=== PATIENT | female | born 1945 | race Caucasian/White ===

== ENCOUNTER → 2020-12-27 15:53 | Outpatient (BNVA) | payer MEDICARE, SELFPAY | PROVIDERS: PCP Internal Medicine; Visit Provider Internal Medicine | DX: E04.1 Nontoxic single thyroid nodule (principal); L65.9 Nonscarring hair loss, unspecified; E55.9 Vitamin D deficiency, unspecified; Z91.040 Latex allergy status; T78.49XA Other allergy, initial encounter | CPT/HCPCS: 99212 ==

== ENCOUNTER 2021-01-03 15:02 | Outpatient (REF) | payer MEDICARE, SELFPAY ==
--- NOTE | ~2021-01-03 | US_ITS ---
EXAMINATION: US SOFT TISSUE NECK CLINICAL INFORMATION: Lymph node mapping. Nontoxic multinodular goiter COMPARISON: June 30, 2019, May 05, 2019, and studies dating back to September 11, 2016 TECHNIQUE: Ultrasound of the neck soft tissues is performed with high- frequency crews-scale imaging and color Doppler. FINDINGS: RIGHT NECK SOFT TISSUES: Scattered architecturally normal nodes are present. The nodes show normal fatty hilus, normal cortical thickness, and no cystic change or calcification. No abnormal color flow. The largest nodes are as follows: Level 2: 1.0 cm. Normal benny architecture. Cortical thickness is up to 1.5 mm in diameter. No cortical lobulation is seen. Level 1B: 0.9 cm. Normal benny architecture. Cortical width measures up to 1.5 mm in diameter without lobulation. LEFT NECK SOFT TISSUES: No abnormal-appearing lymph nodes identified. US/US soft tiss head and/or neck IMPRESSION: 1. Normal right neck lymph nodes with no left neck lymph nodes identified.
--- NOTE | ~2021-01-03 | US_ITS ---
EXAMINATION: US THYROID CLINICAL INFORMATION: Nontoxic multinodular goiter. COMPARISON: Ultrasound soft tissue head/neck thyroid dated 05/05/2019 and 08/16/2018. TECHNIQUE: Linear transducer grayscale and color Doppler examination with attention to the region of the thyroid. FINDINGS: SIZE: Measurements of the thyroid lobes and nodules are given in sagittal, anteroposterior and transverse dimensions respectively. Right Thyroid Lobe: 4.9 x 1.6 x 1.1 cm, volume 4.7 mL. Previously 4.9 x 1.5 x 1.7 cm, volume 6.6 mL. Parenchyma: The gland echotexture is heterogeneous. Thyroid vascularity is increased. Left Thyroid Lobe: 5.1 x 2.6 x 2.9 cm, volume 20.6 mL. Previously 5.7 x 2.5 x 2.9 cm, volume 21.8 mL. Parenchyma: The gland echotexture is heterogeneous. Thyroid vascularity is increased. Isthmus: 0.20 cm in maximum AP dimension. Previously 0.20 cm. Estimated total number of nodules greater than or equal to 1 cm: 2. Liquor Merchant nodules are described as follows: 1. Location: Right superior. Size: 0.80 x 0.30 x 0.60 cm, volume 0.08 mL. Previously: 0.50 x 0.30 x 0.40 cm, volume 0.03 mL. Nodule characteristics: Composition: Mixed cystic and solid (1). Echogenicity: Hyperechoic (1). Shape: Not taller than wide (0). Margins: Smooth (0). Echogenic Foci: None (0). ACR TI-RADS total points: 2 Previous: n/a ACR TI-RADS category: 2 Previous: n/a Significant change in size (>/= 20% in 2 dimensions and minimal increase of 2 mm or 50% or greater increase in volume): Minimal. Change in features: None. Change in ACR TI-RADS risk category: n/a 2. Location: Right superior. Size: 0.80 x 0.30 x 0.70 cm, volume 0.09 mL. Previously: 0.70 x 0.40 x 0.80 cm, volume 0.12 mL. Nodule characteristics: Composition: Solid (2). Echogenicity: Isoechoic (1). Shape: Not taller than wide (0). Margins: Smooth (0). Echogenic Foci: Peripheral calcifications (2). ACR TI-RADS total points: 5 Previous: n/a ACR TI-RADS category: 4 Previous: n/a Significant change in size (>/= 20% in 2 dimensions and minimal increase of 2 mm or 50% or greater increase in volume): None. Change in features: None. Change in ACR TI-RADS risk category: n/a 3. Location: Right inferior. Size: 1.5 x 0.70 x 0.80 cm, volume 0.44 mL. Previously: 0.54 x 0.45 x 0.50 cm, volume 0.06 mL. Nodule characteristics: Composition: Solid (2). Echogenicity: Hypoechoic (2). Shape: Not taller than wide (0). Margins: Smooth (0). Echogenic Foci: Punctate echogenic foci (3). ACR TI-RADS total points: 7 Previous: n/a ACR TI-RADS category: 5 Previous: n/a Significant change in size (>/= 20% in 2 dimensions and minimal increase of 2 mm or 50% or greater increase in volume): Significant increase. Change in features: Slightly heterogeneous. Change in ACR TI-RADS risk category: n/a 4. Location: Left mid. Size: 4.3 x 2.4 x 2.8 cm, volume 15.0 mL. Previously: 4.2 x 2.2 x 3.0 cm, volume 14.5 mL. Nodule characteristics: Composition: Solid/almost completely solid (2). Echogenicity: Isoechoic (1). Shape: Not taller than wide (0). Margins: Smooth (0). Echogenic Foci: Punctate echogenic foci (3). ACR TI-RADS total points: 6 Previous: n/a ACR TI-RADS category: 4 Previous: n/a Significant change in size (>/= 20% in 2 dimensions and minimal increase of 2 mm or 50% or greater increase in volume): None Change in features: None Change in ACR TI-RADS risk category: n/a NODES: No lymphadenopathy is seen in the tissue surrounding the thyroid gland. US/US thyroid IMPRESSION: Multiple bilateral nodules. There is increase in size of the right lower pole nodule by greater than 50%. Recommend fine needle biopsy aspiration. ACR TI-RADS RECOMMENDATION REFERENCE: Ultrasound-guided fine-needle aspiration, followup ultrasound, no further follow up. * TR1 (0 point) and TR 2 (2 points): No FNA or follow up * TR3 (3 points): FNA if more than or equal to 2.5 cm in maximum dimension, followup ultrasound in 1, 3 and 5 years if 1.5 to 2.4 cm in maximum dimension. * TR4 (4-6 points): FNA if more than or equal to 1.5 cm in maximum dimension, followup ultrasound in 1, 2, 3 and 5 years if 1 to 1.4 cm in maximum dimension. * TR5 (more than or equal to 7 points): FNA if more than or equal to 1 cm in maximum dimension, followup ultrasound every year for 5 years if 0.5 to 0.9 cm in maximum dimension. * TR3, TR4 or TR5 nodules that are below the size threshold for follow up receive no follow up.
== END 2021-01-03 15:03 | disposition home or self-care (01) ==
LOC: HO.HMGCX 15:02
PROVIDERS: PCP Internal Medicine; Visit Provider Internal Medicine
DX: E04.2 Nontoxic multinodular goiter (principal)
CPT/HCPCS: 76536

== ENCOUNTER 2021-03-12 07:26 | Outpatient (REF) | payer MEDICARE, SELFPAY ==
[2021-03-12 08:29] LABS: Alanine Aminotransferase 12 U/L (0-31); Albumin Level 4.6 g/dL (3.5-5.0); Alkaline Phosphatase 71 U/L (39-117); Anion Gap 10 (12-20); Aspartate Amino Transferase 15 U/L (5-31); Bilirubin Total 0.4 mg/dL (0.0-1.0); Blood Urea Nitrogen 8 mg/dL (9-16); Calcium 9.5 mg/dL (8.4-10.2); Carbon Dioxide 25 mmol/L (22-29); Chloride 110 mmol/L (96-108); Estimated Glomerular Filt Rate > 60; Glucose Random 111 mg/dL (60-115); Phosphorus 3.7 mg/dL (2.7-4.5); Potassium 4.2 mmol/L (3.3-5.1); Sodium 141 mmol/L (135-145); Total Protein 6.6 g/dL (6.5-8.0)
[2021-03-12 08:40] LABS: Free T4 (Free Thyroxine) 0.95 ng/dL (0.71-1.85); Thyroid Stimulating Hormone 2.95 uIU/mL (0.32-4.0); Vitamin D 25-OH Total 51.6 ng/mL (>30)
[2021-03-13 15:51] LABS: Calcium (PTHI) 9.4 mg/dL (8.6-10.4); PTHI 35 pg/mL (14-64)
[2021-03-14 06:07] LABS: DHEA Sulfate 68 mcg/dL (7-177)
[2021-03-16 12:45] LABS: Testosterone, Free 5.4 pg/mL (0.2-3.7); Testosterone, Total 76 ng/dL (2-45)
[2021-03-20 16:56] LABS: Androstenedione 102 ng/dL
[2021-03-25 16:46] LABS: Adrenocorticotropic Hormone 56 pg/mL (6-50)
== END 2021-03-12 07:27 | disposition home or self-care (01) ==
LOC: HO.LAB 07:26
PROVIDERS: PCP Internal Medicine; Visit Provider Internal Medicine
DX: E55.9 Vitamin D deficiency, unspecified (principal); E04.2 Nontoxic multinodular goiter; L65.9 Nonscarring hair loss, unspecified
CPT/HCPCS: 36415; 80053; 82024; 82157; 82306; 82627; 83498; 83970; 84100; 84402; 84403; 84439; 84443

== ENCOUNTER 2021-03-28 07:39 | Outpatient (REF) | payer MEDICARE, SELFPAY ==
--- NOTE | 2021-03-28 08:45 | PM.OP ---
Brief Operative Note Date of Service: 03/28/21 Pre-op diagnosis: Multinodular Thyroid Surgeon: Jane King, DO This is doctor Jane King. This is an ultrasound-guided fine-needle aspiration report. Date of Examination: 03/28/2021 Indication: Multinodular Thyroid Porcedure: Procedure was explained to the patient. Alternatives, the risk and benefits were discussed. Written consent was obtained. A time-out was also obtained. After sterile preparation, fine-needle aspiration of a right lower pole 1.5 cm thyroid nodule was performed using direct ultrasound guidance to confirm accurate needle placement. Six aspirations were made using 27 gauge needles. Samples were submitted for cytology. One pass was dedicated for [employer] dental laboratory technology teacher testing. Our attention was then turned to the left mid pole. Fine-needle aspiration of a left mid pole 4.5 cm thyroid nodule was performed. Three aspirations were made using 27 gauge needles. Samples were submitted for cytology. One pass was dedicated for [employer] sequencing dental laboratory technology teacher testing. The patient tolerated the procedure well. Aftercare instructions were provided. Impression: Uncomplicated fine needle aspiration biopsy of of a right lower pole 1.5 cm, and a left mid pole 4.5 cm thyroid nodule. Was an Shroud Line Tier used for this Procedure?: No Estimated blood loss (mL): 0
[2021-03-28] MEDS: Lidocaine HCl 1 % MPF 5 ML VIAL SUBCUT (08:48)
== END 2021-03-28 07:40 | disposition home or self-care (01) ==
LOC: HO.US 07:39
PROVIDERS: PCP Internal Medicine; Visit Provider Internal Medicine
DX: E04.2 Nontoxic multinodular goiter (principal)
CPT/HCPCS: 10005; 10006; 88172; 88173; 88177

== ENCOUNTER → 2021-04-11 11:21 | Outpatient (BNVA) | payer MEDICARE, SELFPAY | PROVIDERS: PCP Internal Medicine; Visit Provider Internal Medicine | DX: E04.2 Nontoxic multinodular goiter (principal); E55.9 Vitamin D deficiency, unspecified; E28.8 Other ovarian dysfunction | CPT/HCPCS: Q3014 ==

== ENCOUNTER 2021-04-30 13:52 | Outpatient (REF) | payer MEDICARE, SELFPAY ==
--- NOTE | ~2021-04-30 | CT_ITS ---
EXAMINATION: CT ABDOMEN WITHOUT AND WITH CONTRAST CLINICAL INFORMATION: Ovarian dysfunction. COMPARISON: None TECHNIQUE: Contiguous axial thin section helical images of the abdomen were performed before and after the administration of oral contrast and 85 mL of Omnipaque 350 intravenous contrast. The data set was reformatted in the coronal and sagittal planes and reviewed on an independent workstation. This CT examination was performed using dose optimization techniques as appropriate, variously including the following: *Automated exposure control *Adjustment of mA and/or kV according to patient size (this includes techniques or standardized protocols for targeted exams where dose is matched to indication/reason for exam; i.e. extremities or head) *Use of iterative reconstruction technique DLP: 203 mGy-cm FINDINGS: LUNG BASES: The lung bases are clear. LIVER, GALLBLADDER, AND BILIARY TREE: There are innumerable low-attenuation liver lesions suggestive of a small cyst. The liver is otherwise unremarkable. The gallbladder is unremarkable. There is no biliary duct dilatation. PANCREAS: Unremarkable. SPLEEN: Unremarkable. ADRENAL GLANDS AND KIDNEYS: The adrenal glands are normal. No focal lesion is seen. There is a small 1 cm cyst in the lower pole of the left kidney. No imaging follow-up is indicated. The kidneys are otherwise unremarkable. BOWEL LOOPS: Unremarkable. The visualized distal thoracic esophagus appears slightly dilated and filled with air. LYMPH NODES: Normal. VASCULAR: There are prominent bilateral ovarian veins. There is evidence of atherosclerotic disease. No aneurysm is seen. Vascular structures are otherwise unremarkable. BONES: There are degenerative changes of the spine and scoliosis. There are small sclerotic lesions seen in the L2 vertebral body and visualized right iliac bone. CT/CT abdomen wo/w con IMPRESSION: Normal-appearing adrenal glands. Multiple liver cysts. Left renal cyst. Fleischner guidelines were followed.
[2021-04-30 14:29] LABS: Blood Urea Nitrogen 7 mg/dL (9-16); Estimated Glomerular Filt Rate > 60
[2021-04-30 14:50] LABS: Thyroid Stimulating Hormone 2.42 uIU/mL (0.32-4.0)
[2021-04-30 15:05] LABS: Free T4 (Free Thyroxine) 0.91 ng/dL (0.71-1.85); Vitamin D 25-OH Total 48.3 ng/mL (>30)
[2021-04-30 16:21] LABS: Cortisol Random 27.2 ug/dL
[2021-05-01 18:31] LABS: Sex Hormone Binding Globulin 72 nmol/L (14-73)
[2021-05-05 16:56] LABS: Testosterone, Free 5.1 pg/mL (0.2-3.7); Testosterone, Total 68 ng/dL (2-45)
== END 2021-04-30 13:53 | disposition home or self-care (01) ==
LOC: HO.CT 13:52
PROVIDERS: Nurse Practitioner Gerontology; Visit Provider Internal Medicine
DX: E28.2 Polycystic ovarian syndrome (principal); E04.2 Nontoxic multinodular goiter; E55.9 Vitamin D deficiency, unspecified; E28.8 Other ovarian dysfunction
CPT/HCPCS: 36415; 74170; 82306; 82533; 82565; 84270; 84402; 84403; 84439; 84443; 84520

== ENCOUNTER 2021-05-09 14:15 | Outpatient (REF) | payer MEDICARE, SELFPAY ==
--- NOTE | ~2021-05-09 | US_ITS ---
EXAMINATION: US PELVIS CLINICAL INFORMATION: Ovarian dysfunction; postmenopausal patient. COMPARISON: None TECHNIQUE: Ultrasound of the pelvis is performed using both transabdominal and transvaginal transducers along with Doppler. Transvaginal imaging is performed due to inadequate visualization transabdominally. FINDINGS: Uterus: The uterus is anteverted and measures 6.6 x 3.6 x 4.9 cm. The double wall endometrial thickness is 0.4 to 0.5 mm. The uterus is smooth in contour and has normal myometrial echogenicity. No visible fibroid. FIBROIDS: There are 4 fibroids seen. 1. Location: Anterior lower uterine segment, myometrial. Size: 1.6 x 1.0 x 1.3 cm. Fibroid characteristics: Heterogeneously hypoechoic. 2. Location: Posterior mid body, myometrial. Size: 1.7 x 1.4 x 1.7 cm. Fibroid characteristics: Heterogeneous echotexture. 3. Location: Anterior mid body, myometrial. Size: 1.5 x 0.6 x 1.1 cm. Fibroid characteristics: Heterogeneous hypoechoic. 4. Location: Rightward fundus. Size: 2.4 x 2.7 x 2.3 cm. Fibroid characteristics: Coarsely calcified, with shadowing. Adnexa: Both ovaries are visualized. There is normal color flow to the adnexa. There is no ovarian torsion. There is a small amount nonspecific free fluid in the cul-de-sac. Right ovary measures 2.2 x 1.4 x 0.9 cm (volume 1.5 mL). Left ovary measures 2.0 x 1.4 x 1.4 cm (volume 1.6 mL). US/US pelvic and transvaginal IMPRESSION: Multiple uterine fibroids are noted, as above.
== END 2021-05-09 14:16 | disposition home or self-care (01) ==
LOC: HO.US 14:15
PROVIDERS: PCP Internal Medicine; Visit Provider Internal Medicine
DX: E28.8 Other ovarian dysfunction (principal); N95.9 Unspecified menopausal and perimenopausal disorder
CPT/HCPCS: 76830; 76856

== ENCOUNTER → 2021-06-05 10:25 | Outpatient (BNVA) | payer MEDICARE, SELFPAY | PROVIDERS: PCP Internal Medicine; Visit Provider Internal Medicine | DX: E04.2 Nontoxic multinodular goiter (principal); E55.9 Vitamin D deficiency, unspecified; E28.8 Other ovarian dysfunction | CPT/HCPCS: Q3014 ==

== ENCOUNTER 2021-08-20 14:11 | Outpatient (REF) | payer MEDICARE, SELFPAY | END 2021-08-20 14:12 | disposition home or self-care (01) | LOC: HO.LAB 14:11 | PROVIDERS: PCP Internal Medicine | DX: N39.0 Urinary tract infection, site not specified (principal); N28.1 Cyst of kidney, acquired | CPT/HCPCS: 87086; 99202 ==

== ENCOUNTER 2022-01-18 14:08 | Outpatient (REF) | payer MEDICARE, SELFPAY ==
[2022-01-26 19:51] LABS: Saliva Cortisol <0.03 mcg/dL
== END 2022-01-18 14:09 | disposition home or self-care (01) ==
LOC: HO.LNP 14:08
PROVIDERS: Visit Provider Internal Medicine
DX: E28.8 Other ovarian dysfunction (principal)
CPT/HCPCS: 82530

== ENCOUNTER → 2022-01-20 13:43 | Outpatient (BNVA) | payer MEDICARE, SELFPAY | PROVIDERS: PCP Internal Medicine; Visit Provider Internal Medicine | DX: E04.2 Nontoxic multinodular goiter (principal); E55.9 Vitamin D deficiency, unspecified; E28.8 Other ovarian dysfunction; E28.1 Androgen excess; Z79.899 Other long term (current) drug therapy | CPT/HCPCS: 99212 ==

== ENCOUNTER 2022-03-03 14:11 | Outpatient (REF) | payer MEDICARE, SELFPAY ==
--- NOTE | ~2022-03-03 | US_ITS ---
EXAMINATION: US THYROID CLINICAL INFORMATION: Nontoxic multinodular goiter. COMPARISON: Ultrasound thyroid 01/03/2021 and 05/05/2019. US-guided thyroid biopsy 03/28/2021. TECHNIQUE: Linear transducer grayscale and color Doppler examination with attention to the region of the thyroid. FINDINGS: SIZE: Measurements of the thyroid lobes and nodules are given in sagittal, anteroposterior and transverse dimensions respectively. Right Thyroid Lobe: 4.9 x 1.6 x 1.4 cm, volume 4.7 mL. Previously 5.0 x 1.2 x 1.4 cm, volume 4.4 mL. Parenchyma: The gland echotexture is heterogeneous. Thyroid vascularity is increased. Left Thyroid Lobe: 5.1 x 2.6 x 2.9 cm, volume 20.6 mL. Previously 5.3 x 2.3 x 3.1 cm, volume 19.8 mL. Parenchyma: The gland echotexture is heterogeneous. Thyroid vascularity is increased. Isthmus: 0.1 cm in maximum AP dimension. Previously 0.2 cm. Estimated total number of nodules greater than or equal to 1 cm: 4. Chemical Machine Tender nodules are described as follows: 1. Location: Left superior. Size: 1.0 x 0.9 x 0.9 cm, volume 0.41 mL. Previously: New since the previous study. Nodule characteristics: Composition: Solid/almost completely solid (2). Echogenicity: Isoechoic (1). Shape: Not taller than wide (0). Margins: Smooth (0). Echogenic Foci: Punctate echogenic foci (3). ACR TI-RADS total points: 6 ACR TI-RADS category: 4 2. Location: Left mid. Size: 4.5 x 2.2 x 2.9 cm, volume 14.8 mL. Previously: 4.3 x 2.4 x 2.8 cm, volume 15.0 mL. Nodule characteristics: Composition: Solid/almost completely solid (2). Echogenicity: Isoechoic (1). Shape: Not taller than wide (0). Margins: Smooth (0). Echogenic Foci: Punctate echogenic foci (3). ACR TI-RADS total points: 6 Previous: 6 ACR TI-RADS category: 4 Previous: 4 Significant change in size (>/= 20% in 2 dimensions and minimal increase of 2 mm or 50% or greater increase in volume): Change in features: Change in ACR TI-RADS risk category: 3. Location: Right mid. Size: 1.0 x 0.5 x 0.8 cm, volume 0.22 mL. Previously: 0.8 x 0.3 x 0.7 cm, volume 0.03 mL. Nodule characteristics: Composition: Solid (2). Echogenicity: Hypoechoic (2). Shape: Not taller than wide (0). Margins: Irregular (2). Echogenic Foci: Peripheral calcifications (2). ACR TI-RADS total points: 8 Previous: 5 ACR TI-RADS category: 5 Previous: 4 Significant change in size (>/= 20% in 2 dimensions and minimal increase of 2 mm or 50% or greater increase in volume): Change in features: Change in ACR TI-RADS risk category: 4. Location: Right inferior. Size: 1.3 x 0.9 x 0.9 cm, volume 0.55 mL. Previously: 1.5 x 0.7 x 0.8 cm, volume 0.44 mL. Nodule characteristics: Composition: Solid (2). Echogenicity: Hypoechoic (2). Shape: Not taller than wide (0). Margins: Smooth (0). Echogenic Foci: Punctate echogenic foci (3). ACR TI-RADS total points: 7 Previous: 7 ACR TI-RADS category: 5 Previous: 5 Significant change in size (>/= 20% in 2 dimensions and minimal increase of 2 mm or 50% or greater increase in volume): Change in features: Change in ACR TI-RADS risk category: NODES: No lymphadenopathy is seen in the tissue surrounding the thyroid gland. US/US thyroid IMPRESSION: Heterogeneous hypervascular thyroid gland with bilateral nodules. The left lobe is slightly enlarged. There is a newly appreciated nodule in the upper pole of the left lobe. This has punctate calcifications and according to TI RADS criteria, fine-needle aspiration should be considered. Nodules otherwise do not appear appreciably changed. ACR TI-RADS RECOMMENDATION REFERENCE: Ultrasound-guided fine-needle aspiration, followup ultrasound, no further follow up. * TR1 (0 point) and TR 2 (2 points): No FNA or follow up. * TR3 (3 points): FNA if more than or equal to 2.5 cm in maximum dimension, followup ultrasound in 1, 3 and 5 years if 1.5 to 2.4 cm in maximum dimension. * TR4 (4-6 points): FNA if more than or equal to 1.5 cm in maximum dimension, followup ultrasound in 1, 2, 3 and 5 years if 1 to 1.4 cm in maximum dimension. * TR5 (more than or equal to 7 points): FNA if more than or equal to 1 cm in maximum dimension, followup ultrasound every year for 5 years if 0.5 to 0.9 cm in maximum dimension. * TR3, TR4 or TR5 nodules that are below the size threshold for followup receive no follow up.
== END 2022-03-03 14:12 | disposition home or self-care (01) ==
LOC: HO.HMGCX 14:11
PROVIDERS: PCP Internal Medicine; Visit Provider Internal Medicine
DX: E04.2 Nontoxic multinodular goiter (principal)
CPT/HCPCS: 76536

== ENCOUNTER 2022-08-25 13:40 | Outpatient (REF) | payer MEDICARE, SELFPAY ==
--- NOTE | ~2022-08-25 | US_ITS ---
EXAMINATION: US RETROPERITONEAL LIMITED (RENAL ONLY) CLINICAL INFORMATION: Cyst of kidney, acquired. COMPARISON: CT abdomen 04/30/2021. TECHNIQUE: Real-time imaging of the kidneys. FINDINGS: RIGHT KIDNEY: 9.3 x 3.4 x 4.5 cm (SAG x AP x TRV). The kidney is normal in size, contour, and echogenicity. Renal cortical thickness is normal. No calculi or focal parenchymal lesions. No hydronephrosis. LEFT KIDNEY: 11.1 x 3.9 x 5.5 cm (SAG x AP x TRV). The kidney is normal in size, contour, and echogenicity. Renal cortical thickness is normal. No hydronephrosis. A lower pole benign 0.9 cm cyst is present which needs no additional imaging or follow-up. No solid renal masses. There is a 2 mm hyperechoic focus present consistent with a nonobstructing calculus. US/US renal BI IMPRESSION: 1. Probable 2 mm nonobstructing left renal calculus. 2. Benign Bosniak class I subcentimeter left renal cyst. As mentioned at the time of the prior CT scan as well, no further imaging or follow-up is indicated.
== END 2022-08-25 13:41 | disposition home or self-care (01) ==
LOC: HO.HMGCX 13:40
PROVIDERS: PCP Internal Medicine; Visit Provider Nurse Practitioner Family
DX: N28.1 Cyst of kidney, acquired (principal)
CPT/HCPCS: 76775

== ENCOUNTER → 2022-09-29 14:23 | Outpatient (BNVA) | payer MEDICARE, SELFPAY | PROVIDERS: PCP Internal Medicine; Visit Provider Nurse Practitioner Family | DX: N28.1 Cyst of kidney, acquired (principal); N20.0 Calculus of kidney; R35.1 Nocturia; R35.0 Frequency of micturition | CPT/HCPCS: 99212 ==

== ENCOUNTER 2023-04-24 00:17 | Emergency (ER) | payer MEDICARE, SELFPAY ==
--- NOTE | ~2023-04-24 | XR_ITS ---
EXAMINATION: XR CHEST CLINICAL INFORMATION: Cough, dyspnea COMPARISON: None available. TECHNIQUE: 2 views of the chest were obtained. FINDINGS: The lungs are hyperinflated, suggesting underlying COPD. No focal consolidation is seen. No evidence of pneumothorax, pleural effusion, or pulmonary edema. Cardiac size is within normal limits. Calcification is present at the aortic arch. No acute osseous findings are seen. XR/XR chest 2V IMPRESSION: No acute cardiopulmonary findings. Hyperinflated lungs suggesting COPD.
[2023-04-24 00:25] VITALS: BP 146/53; PULSE 117; RESP 20; TEMP 37; O2SAT 94; BMI 17.5
[2023-04-24 01:11] VITALS: BP 137/67; PULSE 113; RESP 18; TEMP 37.2; O2SAT 98
--- NOTE | 2023-04-24 01:13 | PC.NURSE ---
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 pt has no complaints of pain at this time. pt verbalizing upper respiratory sx x3 days. pt swabbed in triage - awaiting results at this time. no sob/wob noted at this time. lung sounds clear throughout. respirations even and unlabored. bedside for support. call cazares placed within reach.
[2023-04-24 01:19] LABS: Influenza A PCR NEGATIVE (Negative); Influenza B PCR NEGATIVE (Negative); Resp Syncy Virus RNA Qual PCR NEGATIVE (Negative); SARS COV2 PCR INHOUSE NEGATIVE (Negative)
--- NOTE | 2023-04-24 01:35 | ED_ITS ---
HPI - URI/Sore Throat General Chief Complaint: Upper Respiratory Symptoms Stated Complaint: SoB Time Seen by Provider: 04/24/23 01:12 Source: patient Mode of arrival: ambulatory Limitations: no limitations History of Present Illness HPI Narrative: Patient been coughing with running nose and sore throat for last 3 -4 days patient grand kid was sick with similar symptoms no fever no chills no shortness of breath Related Data Home Medications Medication Instructions Recorded Confirmed biotin 5,000 mcg sublingual tablet 5,000 mcg sublingual DAILY 12/27/20 01/20/22 digoxin 125 mcg (0.125 mg) tablet 125 mcg PO DAILY 12/27/20 01/20/22 melatonin 3 mg tablet (Melatin) 3 mg PO BEDTIME PRN 12/27/20 01/20/22 tretinoin 0.1 % topical cream 1 appl topical BEDTIME 12/27/20 01/20/22 Lactobacillus acidophilus 1 1,000 mmu cells PO DAILY PRN 01/20/22 01/20/22 billion cell tablet lhfmobiq-nnwwoekl-fant 8 mg-folic 1 tab PO DAILY 01/20/22 01/20/22 ac 400 mcg-vit K 10 mcg chew tablet (Centrum Chewables) atorvastatin 20 mg tablet 0 mg PO 09/29/22 estradiol 0.01% (0.1 mg/gram) g vaginal 09/29/22 vaginal cream tretinoin 0.025 % topical cream appl topical BEDTIME 09/29/22 Previous Rx's Medication Instructions Recorded pyridoxine (vitamin B6) 100 mg 100 mg PO DAILY 90 days #90 tabs 09/29/22 tablet vibegron 75 mg tablet (Gemtesa) 75 mg PO DAILY 30 days #30 tabs 09/29/22 benzonatate 200 mg capsule 200 mg PO TID PRN cough #30 caps 04/24/23 cefuroxime axetil 500 mg tablet 500 mg PO BID 7 days #14 tabs 04/24/23 prednisone 20 mg tablet 40 mg (2 x 20 mg) PO DAILY #10 tabs 04/24/23 Allergies Allergy/AdvReac Type Severity Reaction Status Date / Time perfume Allergy Mild RASH Verified 09/29/22 15:37 Latex Gloves Allergy Unknown Unknown Uncoded 09/29/22 15:37 SOIL Allergy Unknown RASH Uncoded 09/29/22 15:37 Review of Systems Review of Systems: Yes all other systems are reviewed and are negative [facility] Past Medical History Medical History Hair loss Hyperandrogenism Interstitial cystitis Liver mass Multinodular thyroid Renal cyst Uterine fibroid UTI (urinary tract infection) Vitamin D deficiency Surgical History Hx of appendectomy Hx of lumpectomy Family History Family History Father Myelodysplasia (myelodysplastic syndrome) Mother Goiter Abdominal aortic aneurysm Maternal Grandmother Goiter Paternal Grandmother Diabetes Social History Household Members: Spouse Alcohol intake: current Alcohol intake frequency: holidays/special occasions only Alcohol type: wine Patient Tobacco Use Status: Never used Tobacco Smoked in Last 30 Days: No Use of substances other than those prescribed or required for medical reasons: No Advance Directives: No Advance Directives Information Provided: No Physical Exam Vital Signs: Vital Signs: Last Vital Signs Temp 98.9 F 04/24/23 01:11 Pulse 106 H 04/24/23 01:53 Resp 18 04/24/23 01:53 BP 137/67 04/24/23 01:11 Pulse Ox 98 04/24/23 01:11 O2 Del Method Room Air 04/24/23 01:11 BMI result Body Mass Index 17.5 Appearance: Alert. Oriented X3. No acute distress. ENT: Pharynx normal. Oral Mucosa moist Neck: Normal inspection. Neck supple. CVS: Normal heart rate and rhythm. Pulses normal. Respiratory: No respiratory distress. Bilateral wheezing cough Equal air entry bilateral, Abdomen: Soft and nontender. Bowel sounds are present, Skin: Skin warm and dry. Normal skin color. Normal skin turgor. Extremities: No lower extremity edema. No calf tendernessNo sensory deficit.No cerebellar signs , cranial nerves II-XII intact Medications Administered Discontinued Medications Generic Name Dose Route Start Last Admin Trade Name Freq PRN Reason Stop Dose Admin Cefuroxime Axetil 500 mg 04/24/23 01:38 04/24/23 01:44 Cefuroxime Axetil 500 Mg Tablet PO 04/24/23 01:39 500 mg ONCE ONE Administration Albuterol Sulfate 2.5 mg/ 0 mg 04/24/23 01:35 04/24/23 01:52 Albuterol/Ipratropium 3 ml INHALE 04/24/23 01:36 5 dose ONCE ONE Administration Dexamethasone 10 mg 04/24/23 01:35 04/24/23 01:41 Dexamethasone 2 Mg Tablet PO 04/24/23 01:36 10 mg ONCE ONE Administration Guaifenesin/Codeine Phosphate 10 ml 04/24/23 01:36 04/24/23 01:41 Guaifen/Codeine Sf 200/20/10ml 10 Ml Liquid PO 04/24/23 01:37 10 ml ONCE ONE Administration Medical Decision Making Medical Decision Making [facility] Narrative: Patient has bronchitis COVID flu strep negative discharge patient home on antibiotics and steroids and inhaler Differential Diagnosis Differential Diagnoses: The differential diagnosis associated with the presentation includes As above Lab Data [facility] Lab Attestation statement: I reviewed the patient's lab results. Labs: Lab Results 04/24/23 04/24/23 Range/Units 00:33 02:31 Urine Color Yellow Urine Appearance Clear Urine pH 5.0 (5.0-9.0) Ur Specific [place] 1.020 (1.005-1.025) Urine Protein Negative (Neg-Trace) mg/dL Urine Glucose (UA) Negative (Negative) mg/dL Urine Ketones Trace (Negative) mg/dL Urine Blood Negative (Negative) Urine Nitrite Negative (Negative) Ur Leukocyte Esterase Moderate (2+) H (Negative) Urine RBC 0-2 (0-2) /HPF Urine WBC 21-50 H (0-5) /HPF Ur Squamous Epith Cells 0-2 (0-2) /HPF Urine Bacteria None Seen (None Seen) Hyaline Casts 0-2 (0-2) /LPF Influenza Type A (PCR) NEGATIVE (Negative) Influenza Type B (PCR) NEGATIVE (Negative) RSV RNA Qual (PCR) NEGATIVE (Negative) SARS-CoV-2 RNA (RT-PCR) NEGATIVE (Negative) S. pyogenes GrpA LAUREN Negative (Negative) Discharge Plan Discharge Clinical Impression: Acute bronchitis Patient Disposition: Home, Self-Care Instructions: Acute Bronchitis (ED) Additional Instructions: Take antibiotics, prednisone and use inhaler as prescribed Follow with PCP if not better Prescriptions: New benzonatate 200 mg capsule 200 mg PO TID PRN (Reason: cough) Qty: 30 0RF prednisone 20 mg tablet 40 mg PO DAILY Qty: 10 0RF cefuroxime axetil 500 mg tablet 500 mg PO BID 7 Days Qty: 14 0RF No Action digoxin 125 mcg (0.125 mg) tablet 125 mcg PO DAILY biotin 5,000 mcg tablet, sublingual 5,000 mcg sublingual DAILY melatonin [Melatin] 3 mg tablet 3 mg PO BEDTIME PRN tretinoin 0.1 % cream 1 appl topical BEDTIME Lactobacillus acidophilus 1 billion cell tablet 1,000 mmu cells PO DAILY PRN estradiol 0.01 % (0.1 mg/gram) cream vaginal atorvastatin 20 mg tablet 0 mg PO tretinoin 0.025 % cream topical BEDTIME pyridoxine (vitamin B6) 100 mg tablet 100 mg PO DAILY 90 Days Qty: 90 3RF Gemtesa 75 mg tablet 75 mg PO DAILY 30 Days Qty: 30 1RF Centrum Chewables 8 mg-400 mcg- 10 mcg tablet,chewable 1 tab PO DAILY Interventions: ED Discharge Assessment Last Done: 04/24/23 02:59 Discharge Date/Time: 04/24/23 02:59
[2023-04-24] MEDS: guaiFEN/Codeine SF 200/20/10ML 10 ML LIQUID PO (01:41)
[2023-04-24] MEDS: dexAMETHasone 2 MG TABLET 10 MG PO (01:41)
[2023-04-24] MEDS: cefuroxime axetiL 500 MG TABLET PO (01:44)
--- NOTE | 2023-04-24 01:45 | PC.NURSE ---
medication administered per provider order. pt awaiting RT treatment at this time.
[2023-04-24] MEDS: Albuterol Sulfate 2.5 MG, Albuterol/Iprat 2.5/0.5MG 3 ML 3 ML INHALE (01:52)
[2023-04-24 01:53] VITALS: PULSE 106; RESP 18; O2SAT 97
--- NOTE | 2023-04-24 01:55 | PC.NURSE ---
pt receiving breathing treatment at this time.
[2023-04-24 02:40] LABS: Appearance Urine Clear; Color Urine Yellow; Glucose Urine UA Negative (Negative); Leukocyte Esterase Urine Moderate (2+) (Negative); Nitrite Urine Negative (Negative); UMIC TRIGGER UACC YES; Urine Blood Negative (Negative); Urine Ketones Trace mg/dL (Negative); Urine Protein Negative (Neg-Trace)
[2023-04-24 02:44] LABS: IDNOW Serial# 6674DD1D; Strep A Nucleic Acid Negative (Negative)
[2023-04-24 03:05] LABS: Bacteria Urine None Seen (None Seen); Hyaline Casts Urine 0-2 /LPF (0-2); RBC Urine 0-2 /HPF (0-2); Squamous Epithelial Cell Urine 0-2 /HPF (0-2); UACC Culture Trigger YES; WBC Urine 21-50 /HPF (0-5)
== END 2023-04-24 02:59 | disposition home or self-care (01) ==
PROVIDERS: Emergency Provider Internal Medicine; PCP Internal Medicine
DX: J20.9 Acute bronchitis, unspecified (principal); R06.02 Shortness of breath; R05.9 Cough, unspecified; Z11.52 Encounter for screening for COVID-19; Z20.828 Contact with and (suspected) exposure to other viral communicable diseases; Z79.899 Other long term (current) drug therapy
CPT/HCPCS: 0241U; 71046; 81001; 87086; 87651; 94640; 99284; J8540

== ENCOUNTER 2023-05-04 01:56 | Emergency (ER) | payer MEDICARE, SELFPAY ==
--- NOTE | 2023-05-04 | ECG_ITS ---
Test Reason : dyspnea Blood Pressure : / mmHG Vent. Rate : 102 BPM Atrial Rate : 102 BPM P-R Int : 142 ms QRS Dur : 074 ms QT Int : 322 ms P-R-T Axes : 077 087 039 degrees QTc Int : 419 ms Sinus tachycardia Biatrial enlargement Nonspecific ST abnormality Abnormal ECG When compared with ECG of 05-JAN-2013 06:22, No significant change was found Referred By: Generic ED Physician Electronically Signed By:TRISH AG
--- NOTE | ~2023-05-04 | XR_ITS ---
EXAMINATION: XR CHEST CLINICAL INFORMATION: Cough COMPARISON: Chest x-ray on 04/24/2023 TECHNIQUE: Frontal view of the chest was obtained. FINDINGS: vascularity. LUNGS: Lungs are hyperinflated and clear. No pneumothorax is seen. BONES: Bony skeleton is intact. XR/XR chest 1V IMPRESSION: 1. Unchanged COPD. 2. No evidence of acute cardiopulmonary process.
[2023-05-04 02:27] VITALS: BP 125/67; PULSE 101; RESP 16; TEMP 36.8; O2SAT 98; BMI 17.5
[2023-05-04 03:32] LABS: Influenza A PCR NEGATIVE (Negative); Influenza B PCR NEGATIVE (Negative); Resp Syncy Virus RNA Qual PCR NEGATIVE (Negative); SARS COV2 PCR INHOUSE NEGATIVE (Negative)
[2023-05-04 04:11] LABS: Basophils Percent Auto 0.2 % (0-2); Eosinophils Absolute Auto 0.1 X10*3/uL (0.0-0.4); Eosinophils Percent Auto 0.4 % (0-4); Imm Gran Abs Auto 0.11 X10*3/uL (0.00-0.03); Imm Gran Pct Auto 0.7 % (0.0-0.4); Lymphocytes Absolute Auto 0.9 X10*3/uL (1.2-4.9); Lymphocytes Percent Auto 5.5 % (20-40); MANUAL DIFF FLAG NO; Mean Corpuscular HGB Conc 33.3 g/dl (31.0-35.0); Mean Corpuscular Hemoglobin 29.6 pg (27.0-33.0); Mean Corpuscular Volume 88.8 fL (80.0-98.0); Monocytes Absolute Auto 1.1 X10*3/uL (0.1-1.2); Monocytes Percent Auto 6.7 % (2-11); Neutrophils Absolute Auto 13.8 x10*3/uL (2.0-8.3); Neutrophils Percent Auto 86.5 % (45-73); Platelet Count 274 X10*3/uL (160-400); Red Blood Count 4.39 X10*6/uL (4.20-5.50); Red Cell Distribution Width 13.4 % (11.0-16.0); White Blood Count 15.9 X10*3/uL (4.8-10.8)
[2023-05-04 04:21] VITALS: PULSE 99; RESP 23; O2SAT 99
--- NOTE | 2023-05-04 04:22 | PC.NURSE ---
pt previously seen finished course abx/prednisone; sx improved however returned after 3 days. pt c/o persistent barking cough x 2 days. lung sounds cta. pt reported to this RN increased sob. Dr. Lockett notified; breathing tx ordered. labs drawn. pt refused xray d/t radiation. Dr. Lockett in agreement to cancel order. pt awaiting primary eval by ed provider. nad. at bedside.
[2023-05-04 04:25] LABS: Anion Gap 14 (12-20); Blood Urea Nitrogen 8 mg/dL (9-16); C Reactive Protein 0.78 mg/dL (< or = 0.50); Calcium 9.5 mg/dL (8.4-10.2); Carbon Dioxide 24 mmol/L (22-29); Chloride 110 mmol/L (96-108); Creatinine Clr Calc Pharmacy 46.1; Estimated Glomerular Filt Rate > 60; Glucose Random 110 mg/dL (60-115); Potassium 4.5 mmol/L (3.3-5.1); Sodium 143 mmol/L (135-145)
[2023-05-04] MEDS: Albuterol/Iprat 2.5/0.5MG 3 ML AMPUL.NEB INHALE ×2 (04:41→08:05)
[2023-05-04 04:44] VITALS: PULSE 100; RESP 20; O2SAT 95
[2023-05-04 06:30] VITALS: BP 123/53; PULSE 102; RESP 22; TEMP 37.2; O2SAT 99
--- NOTE | 2023-05-04 06:31 | PC.NURSE ---
pt reports some improvement immediately after breathing tx however sx worsening again. persistent dry/barking cough. sats 99% on RA. afebrile. pt awaiting eval by ed provider.
--- NOTE | 2023-05-04 07:21 | ED_ITS ---
HPI - URI/Sore Throat General Chief Complaint: Upper Respiratory Symptoms Stated Complaint: Trouble Breathing Time Seen by Provider: 05/04/23 07:20 Source: patient, RN notes reviewed and old records reviewed Mode of arrival: ambulatory History of Present Illness HPI Narrative: 77-year-old female with past medical history of interstitial cystitis, liver mass, vitamin-D deficiency, multi nodular thyroid, presenting to the ED complaining of continued dry cough, SOB, rhinorrhea/congestion x1.5 weeks. Patient admits she was seen and treated in our ED on 04/24 diagnosed with bronchitis, treated with Tessalon Perles, Prednisone, & Ceftin without relief. Denies fever, sore throat, chest pain, pedal edema/calf tenderness MD elicited complaint: cough and rhinorrhea Related Data Home Medications Medication Instructions Recorded Confirmed biotin 5,000 mcg sublingual tablet 5,000 mcg sublingual DAILY 12/27/20 01/20/22 digoxin 125 mcg (0.125 mg) tablet 125 mcg PO DAILY 12/27/20 01/20/22 melatonin 3 mg tablet (Melatin) 3 mg PO BEDTIME PRN 12/27/20 01/20/22 tretinoin 0.1 % topical cream 1 appl topical BEDTIME 12/27/20 01/20/22 Lactobacillus acidophilus 1 1,000 mmu cells PO DAILY PRN 01/20/22 01/20/22 billion cell tablet ocduypbm-zbkdfmas-cafw 8 mg-folic 1 tab PO DAILY 01/20/22 01/20/22 ac 400 mcg-vit K 10 mcg chew tablet (Centrum Chewables) atorvastatin 20 mg tablet 0 mg PO 09/29/22 estradiol 0.01% (0.1 mg/gram) g vaginal 09/29/22 vaginal cream tretinoin 0.025 % topical cream appl topical BEDTIME 09/29/22 Previous Rx's Medication Instructions Recorded pyridoxine (vitamin B6) 100 mg 100 mg PO DAILY 90 days #90 tabs 09/29/22 tablet vibegron 75 mg tablet (Gemtesa) 75 mg PO DAILY 30 days #30 tabs 09/29/22 benzonatate 200 mg capsule 200 mg PO TID PRN cough #30 caps 04/24/23 cefuroxime axetil 500 mg tablet 500 mg PO BID 7 days #14 tabs 04/24/23 prednisone 20 mg tablet 40 mg (2 x 20 mg) PO DAILY #10 tabs 04/24/23 albuterol sulfate 90 mcg/actuation 2 puff inhalation Q4-6H PRN 05/04/23 aerosol inhaler shortness of breath or wheezing #6.7 grams benzonatate 100 mg capsule 100 mg PO TID PRN cough #14 caps 05/04/23 doxycycline hyclate 100 mg tablet 100 mg PO BID 7 days #14 tabs 05/04/23 fluticasone propionate 50 2 spray intranasal DAILY #16 grams 05/04/23 mcg/actuation nasal spray,suspension (Flonase Allergy Relief) Allergies Allergy/AdvReac Type Severity Reaction Status Date / Time perfume Allergy Mild RASH Verified 09/29/22 15:37 Latex Gloves Allergy Unknown Unknown Uncoded 09/29/22 15:37 SOIL Allergy Unknown RASH Uncoded 09/29/22 15:37 Review of Systems 2 Review of Systems: Constitutional: No Fever, No Chills ENT/Mouth: No Ear Pain, + Nasal Congestion, No Sinus Pain, No Hoarseness, No sore throat, + Rhinorrhea, No Swallowing Difficulty Cardiovascular: No Chest Pain, + SOB Respiratory: + Cough, No Sputum, No Wheezing Gastrointestinal: No Nausea, No Vomiting, No Diarrhea, No Constipation, No Abdominal pain Musculoskeletal: No joint pain, No Myalgias, No Joint Swelling Skin: No Skin Lesions, No rash Neuro: No Weakness, No Numbness, No Paresthesias Yes all other systems are reviewed and are negative Constitutional: Constitutional: Reports as per [facility] Past Medical History Attestation statement: The following information was validated with the patient. Source: old records reviewed Medical History Interstitial cystitis UTI (urinary tract infection) Uterine fibroid Renal cyst Liver mass Hyperandrogenism Hair loss Vitamin D deficiency Multinodular thyroid Surgical History Hx of appendectomy Hx of lumpectomy Family History Family History Father Myelodysplasia (myelodysplastic syndrome) Mother Goiter Abdominal aortic aneurysm Maternal Grandmother Goiter Paternal Grandmother Diabetes Social History Social History Household Members: Spouse Alcohol intake: current Alcohol intake frequency: holidays/special occasions only Alcohol type: wine Patient Tobacco Use Status: Never used Tobacco Advance Directives: No Advance Directives Information Provided: No Physical Exam 2 Vital Signs: Vital Signs: Last Vital Signs Temp 98.9 F 05/04/23 06:30 Pulse 112 H 05/04/23 08:07 Resp 16 05/04/23 08:07 BP 123/53 L 05/04/23 06:30 Pulse Ox 99 05/04/23 06:30 O2 Del Method Room Air 05/04/23 06:30 BMI result Body Mass Index 17.5 Const: General: cooperative, healthy appearing and no acute distress O rientation/consciousness: patient oriented x3 Limitations: no limitations HEENT: Head: Yes normal to inspection and Yes atraumatic Ears: hearing grossly normal bilaterally and external ears normal General nose exam: Normal external nose present Face and sinus: Yes normal facial exam Throat: Yes posterior oropharynx normal, Yes uvula midline and No peritonsillar mass Eyes: General: appearance normal, both eyes and all related structures EOM: EOMs intact bilaterally Neck: Neck: Yes normal visual inspection and Yes no meningeal signs Resp: Effort & Inspection: normal respiratory effort and no respiratory distress Auscultation: clear to auscultation bilaterally, no crackles, no rales, no rhonchi and no wheezes Cardio: Rate: regular rate and tachycardic Heart sounds: S1 normal heart sound present and S2 normal heart sound present GI: Inspection: Yes normal to inspection Palpation (GI): Soft to palpation, nontender, no guarding and not rigid : General: Yes no CVA tenderness Back/Spine/Pelvis: Back: no CVA tenderness Skin: Rashes: no rashes Wounds: no wounds Neuro: General: patient oriented x3, tone normal and no meningeal signs C ranial nerves: Yes CN's II-XII intact bilaterally Gait exam (Neuro): Normal gait present Extrem: General: Yes normal to inspection, Yes no pedal edema and Yes no calf tenderness Course Course Course Narrative: -0749--mild leukocytosis of 15.9 likely from recent prednisone use, low suspicion for severe sepsis. CRP minimally elevated. Labs otherwise reassuring -COVID/flu/RSV negative 0900--XR chest 1V IMPRESSION: 1. Unchanged COPD. 2. No evidence of acute cardiopulmonary process. Results discussed with patient including worrisome signs and symptoms and strict return precautions, and when to return to the emergency department. They verbalized understanding and feel safe for discharge at this time. Medications Administered Discontinued Medications Generic Name Dose Route Start Last Admin Trade Name Black PRN Reason Stop Dose Admin Albuterol/Ipratropium 3 ml 05/04/23 04:00 05/04/23 04:41 Albuterol/Iprat 2.5/0.5mg 3 Ml Ampul.Neb INHALE 05/04/23 04:01 3 ml ONCE ONE Administration Albuterol/Ipratropium 3 ml 05/04/23 07:39 05/04/23 08:05 Albuterol/Iprat 2.5/0.5mg 3 Ml Ampul.Neb INHALE 05/04/23 07:40 3 ml ONCE ONE Administration Medical Decision Making Medical Decision Making [facility] Narrative: 77-year-old female with past medical history of interstitial cystitis, liver mass, vitamin-D deficiency, multi nodular thyroid, presenting to the ED complaining of continued dry cough, SOB, rhinorrhea/congestion x1.5 weeks. On exam initially tachycardic, NAD, nontoxic appearing, notable congestion, lungs CTA, talking in complete sentences, no respiratory distress. No pedal edema. Concern for viral illness vs bronchitis vs pneumonia. Lower suspicion for ACS/PE or CHF. Low suspicion for severe sepsis at this time is likely viral etiology Plan: EKG, labs, viral testing comes CXR, DuoNeb Please refer to course for remaining clinical decision making, interpretation of labs/imaging results, and discussions with consultants and/or family members. Differential Diagnosis Differential Diagnoses: The differential diagnosis associated with the presentation includes As above Admission/Observation Consideration of admission/observation: Escalation of care including admission/observation considered Lab Data [facility] Lab Attestation statement: I reviewed the patient's lab results. 05/04/23 04:06 05/04/23 04:06 Labs: Lab Results 05/04/23 05/04/23 Range/Units 02:51 04:06 WBC 15.9 H (4.8-10.8) X10*3/uL RBC 4.39 (4.20-5.50) X10*6/uL Hgb 13.0 (12.0-16.0) g/dl Hct 39.0 (37.0-47.0) % MCV 88.8 (80.0-98.0) fL MCH 29.6 (27.0-33.0) pg MCHC 33.3 (31.0-35.0) g/dl RDW 13.4 (11.0-16.0) % Plt Count 274 (160-400) X10*3/uL MPV 9.0 L (9.4-12.3) fL Immature Gran % (Auto) 0.7 H (0.0-0.4) % Neut % (Auto) 86.5 H (45-73) % Lymph % (Auto) 5.5 L (20-40) % [place] % (Auto) 6.7 (2-11) % Eos % (Auto) 0.4 (0-4) % Baso % (Auto) 0.2 (0-2) % Lymph # (Auto) 0.9 L (1.2-4.9) X10*3/uL [place] # (Auto) 1.1 (0.1-1.2) X10*3/uL Eos # (Auto) 0.1 (0.0-0.4) X10*3/uL Baso # (Auto) 0.0 (0.0-0.2) X10*3/uL Abs Immat Gran (auto) 0.11 H (0.00-0.03) X10*3/uL Absolute Neuts (auto) 13.8 H (2.0-8.3) x10*3/uL Absolute Nucleated RBC 0.000 (0.0-0.012) X10*3/uL Nucleated RBC % (auto) 0.0 (0.0-0.2) /100WBC Sodium 143 (135-145) mmol/L Potassium 4.5 (3.3-5.1) mmol/L Chloride 110 H (96-108) mmol/L Carbon Dioxide 24 (22-29) mmol/L Anion Gap 14 (12-20) BUN 8 L (9-16) mg/dL Creatinine 0.78 (0.5-1.4) mg/dL Estim Creat Clear Calc 46.1 Estimated GFR > 60 Random Glucose 110 (60-115) mg/dL Calcium 9.5 (8.4-10.2) mg/dL Total Bilirubin 0.5 (0.0-1.0) mg/dL Direct Bilirubin 0.2 (0.0-0.5) mg/dL AST 14 (5-31) U/L ALT 13 (0-31) U/L Alkaline Phosphatase 56 (39-117) U/L C-Reactive Protein 0.78 H (< or = 0.50) mg/dL B-Natriuretic Peptide 17 (<100) pg/mL Total Protein 6.3 L (6.5-8.0) g/dL Albumin 4.1 (3.5-5.0) g/dL Influenza Type A (PCR) NEGATIVE (Negative) Influenza Type B (PCR) NEGATIVE (Negative) RSV RNA Qual (PCR) NEGATIVE (Negative) SARS-CoV-2 RNA (RT-PCR) NEGATIVE (Negative) Independent Interpretation I performed an independent interpretation of an: EKG (My interpretation EKG sinus tachycardia rate of 102. Pr interval 142. QTC 419. No STEMI) and Plain X-Ray Radiology Impression Discussion of test interpretation with radiology: I have reviewed the radiologist's reading. External Record Review External record reviewed: Inpatient record, Office record, Outpatient record, Prior outpatient labs, Prior outpatient radiology, Primary care record and Outside ED record Tests considered The following testing was considered but not selected: As above Prescription Management I considered prescription management with: Antiviral and Antibiotic Chronic Conditions Patient?s care impacted by: Other Discharge Plan Discharge Clinical Impression: Bronchitis Patient Disposition: Home, Self-Care Instructions: Acute Bronchitis (ED) Additional Instructions: Your x-ray is unchanged. Does show evidence of COPD You tested negative for COVID/flu/RSV Doxycycline as an antibiotic please take as prescribed benzonatate are coughing pills, take as needed Use albuterol inhaler and Flonase Please follow-up with her doctor Is symptoms persist or worsen return to the ED Prescriptions: New benzonatate 100 mg capsule 100 mg PO TID PRN (Reason: cough) Qty: 14 0RF albuterol sulfate 90 mcg/actuation HFA aerosol inhaler 2 puff inhalation Q4-6H PRN (Reason: shortness of breath or wheezing) Qty: 6.7 0RF doxycycline hyclate 100 mg tablet 100 mg PO BID 7 Days Qty: 14 0RF fluticasone propionate [Flonase Allergy Relief] 50 mcg/actuation spray,suspension 2 spray intranasal DAILY Qty: 16 0RF Rx Instructions: administer into each nostril No Action benzonatate 200 mg capsule 200 mg PO TID PRN (Reason: cough) Qty: 30 0RF prednisone 20 mg tablet 40 mg PO DAILY Qty: 10 0RF cefuroxime axetil 500 mg tablet 500 mg PO BID 7 Days Qty: 14 0RF digoxin 125 mcg (0.125 mg) tablet 125 mcg PO DAILY biotin 5,000 mcg tablet, sublingual 5,000 mcg sublingual DAILY melatonin [Melatin] 3 mg tablet 3 mg PO BEDTIME PRN tretinoin 0.1 % cream 1 appl topical BEDTIME Lactobacillus acidophilus 1 billion cell tablet 1,000 mmu cells PO DAILY PRN estradiol 0.01 % (0.1 mg/gram) cream vaginal atorvastatin 20 mg tablet 0 mg PO tretinoin 0.025 % cream topical BEDTIME pyridoxine (vitamin B6) 100 mg tablet 100 mg PO DAILY 90 Days Qty: 90 3RF Gemtesa 75 mg tablet 75 mg PO DAILY 30 Days Qty: 30 1RF Centrum Chewables 8 mg-400 mcg- 10 mcg tablet,chewable 1 tab PO DAILY Referrals: Lisa Lala MD [Primary Care Provider] - 3 days Interventions: ED Discharge Assessment Last Done: 05/04/23 09:17 Discharge Date/Time: 05/04/23 09:17
[2023-05-04 08:03] LABS: Alanine Aminotransferase 13 U/L (0-31); Albumin Level 4.1 g/dL (3.5-5.0); Alkaline Phosphatase 56 U/L (39-117); Aspartate Amino Transferase 14 U/L (5-31); Bilirubin Direct 0.2 mg/dL (0.0-0.5); Bilirubin Total 0.5 mg/dL (0.0-1.0); Total Protein 6.3 g/dL (6.5-8.0)
[2023-05-04 08:07] VITALS: PULSE 112; RESP 16; O2SAT 99
[2023-05-04 08:24] LABS: B Type Natriuretic Peptide 17 pg/mL (<100)
== END 2023-05-04 09:17 | disposition home or self-care (01) ==
PROVIDERS: Emergency Medicine; Physician Assistant; Emergency Provider Emergency Medicine; PCP Internal Medicine
DX: J40 Bronchitis, not specified as acute or chronic (principal); R00.0 Tachycardia, unspecified; R06.02 Shortness of breath; R05.9 Cough, unspecified; Z79.899 Other long term (current) drug therapy; Z20.822 Contact with and (suspected) exposure to COVID-19; Z20.828 Contact with and (suspected) exposure to other viral communicable diseases
CPT/HCPCS: 0241U; 36415; 71045; 80048; 80076; 83880; 85025; 86140; 93005; 94640; 99284; 99285

== ENCOUNTER → 2023-05-04 02:20 | Outpatient (BNV) | payer MEDICARE, SELFPAY | PROVIDERS: Emergency Provider Emergency Medicine; PCP Internal Medicine; Visit Provider Internal Medicine | DX: R00.0 Tachycardia, unspecified (principal); R94.31 Abnormal electrocardiogram [ECG] [EKG] | CPT/HCPCS: 93010 ==

== ENCOUNTER 2023-08-10 15:30 | Outpatient (AMB) | payer MEDICARE, SELFPAY ==
--- NOTE | 2023-08-10 15:31 | MHC.OFFVIS ---
Intake Vital Signs 08/10/23 15:33 Height 5 ft 4 in Weight 106 lb 14.787 oz BMI 18.4 BP 134/62 Blood Pressure Location Lt brachial Position Sitting Pulse 72 Pulse Source Pulse Oximeter Intake Visit Reasons: Thyroid nodule-# not in serv Intake Note: Patient present today for Thyroid follow up visit. Special Education Inclusion Teacher Required: No Accompanied by: Self / Same As Patient Allergies perfume Allergy (Mild, Verified 09/29/22 15:37) RASH Latex Gloves Allergy (Unknown, Uncoded 09/29/22 15:37) Unknown SOIL Allergy (Unknown, Uncoded 09/29/22 15:37) RASH HPI HPI Comments History of Present Illness Details 77 YO F with PMHx NTMNG who is seen in F/U for her NTMNG and also hyperandrogenism. She was previously followed by Dr. Mustafa.. The patient last saw Dr. Reynoso on 01/20/2022 1) NTMNG: She has a long history of a multinodular thyroid. She was previously followed by [place], and was initially diagnosed in 2011. She had FNA of her RMP, LMP and LLP nodules in 2011, all benign. She then underwent repeat FNA biopsy 06/30/2019 of a 4.2 cm L sided thyroid nodule and a 1.1 cm RLP nodule. Both with benign cytology. She then was lost to F/U during the COVID-19 pandemic, but subsequently reestablished care. She had a repeat US which revealed interval growth of her RLP nodule to 1.5 cm. Her LMP nodule was stable at 4.5 cm. She did meet indication for FNA biopsy of her RLP 1.5 cm nodule, and requested FNA biopsy of her LMP 4.5 cm thyroid nodule for peace of mind. I did review with her that this was not indicated, but she insisted on having it completed. She underwent FNA biopsy 03/28/2021 of her RLP 1.5 cm thyroid nodule and her LMP 4.5 cm thyroid nodule both with benign (bethesda category II) cytology. She denies any significant compressive symptoms. She does report hair loss, but otherwise feels well. Her ROS is otherwise negative at this time. 2) Hyperandrogenism: She was complaining of hair loss so we checked a full androgen panel which revealed elevated free and total testosterone. Her CT of the adrenals revealed no adrenal mass. Her US Ovaries revealed uterine fibroids, but no ovarian massess. Her Cortisol and ACTH were elevated. She was asked to complete a dexamethasone suppression test but has refused. CT Abdomen: 04/30/2021 FINDINGS: LUNG BASES: The lung bases are clear.? LIVER, GALLBLADDER, AND BILIARY TREE: There are innumerable low-attenuation liver lesions suggestive of a small cyst. The liver is otherwise unremarkable. The gallbladder is unremarkable. There is no biliary duct dilatation.? PANCREAS: Unremarkable.? SPLEEN: Unremarkable. ADRENAL GLANDS AND KIDNEYS: The adrenal glands are normal. No focal lesion is seen. There is a small 1 cm cyst in the lower pole of the left kidney. No imaging follow-up is indicated. The kidneys are otherwise unremarkable. BOWEL LOOPS: Unremarkable. The visualized distal thoracic esophagus appears slightly dilated and filled with air. LYMPH NODES: Normal. VASCULAR: There are prominent bilateral ovarian veins. There is evidence of atherosclerotic disease. No aneurysm is seen. Vascular structures are otherwise unremarkable. BONES: There are degenerative changes of the spine and scoliosis. There are small sclerotic lesions seen in the L2 vertebral body and visualized right iliac bone. Ovarian US: 05/09/2021 FINDINGS: Uterus: The uterus is anteverted and measures 6.6 x 3.6 x 4.9 cm. The double wall endometrial thickness is 0.4 to 0.5 mm.? The uterus is smooth in contour and has normal myometrial echogenicity. ? No visible fibroid. FIBROIDS: There are 4 fibroids seen. ?1. Location: Anterior lower uterine segment, myometrial. ?? ? Size: 1.6 x 1.0 x 1.3 cm. ?? ? Fibroid characteristics: Heterogeneously hypoechoic. ?2. Location: Posterior mid body, myometrial. ?? ? Size: 1.7 x 1.4 x 1.7 cm. ?? ? Fibroid characteristics: Heterogeneous echotexture. ?3. Location: Anterior mid body, myometrial. ?? ? Size: 1.5 x 0.6 x 1.1 cm. ?? ? Fibroid characteristics: Heterogeneous hypoechoic. ?4. Location: Rightward fundus. ?? ? Size: 2.4 x 2.7 x 2.3 cm. ?? ? Fibroid characteristics: Coarsely calcified, with shadowing. Adnexa: Both ovaries are visualized. There is normal color flow to the adnexa. There is no ovarian torsion.? There is a small amount nonspecific free fluid in the cul-de-sac. Right ovary measures 2.2 x 1.4 x 0.9 cm (volume 1.5 mL). Left ovary measures 2.0 x 1.4 x 1.4 cm (volume 1.6 mL). Thyroid US 01/03/2021: Right Thyroid Lobe: 4.9 x 1.6 x 1.1 cm, volume 4.7 mL. Previously 4.9 x 1.5 x 1.7 cm, volume 6.6 mL. Parenchyma: The gland echotexture is heterogeneous. Thyroid vascularity is increased. Left Thyroid Lobe: 5.1 x 2.6 x 2.9 cm, volume 20.6 mL. Previously 5.7 x 2.5 x 2.9 cm, volume 21.8 mL. Parenchyma: The gland echotexture is heterogeneous. Thyroid vascularity is increased. Isthmus: 0.20 cm in maximum AP dimension. Previously 0.20 cm. Estimated total number of nodules greater than or equal to 1 cm: 2. [employer] nodules are described as follows: 1.? Location: Right superior. ?? ? Size: 0.80 x 0.30 x 0.60 cm, volume 0.08 mL. ?? ? Previously: 0.50 x 0.30 x 0.40 cm, volume 0.03 mL. ?? ? Nodule characteristics: ?? ? Composition: Mixed cystic and solid (1). ?? ? Echogenicity: Hyperechoic (1). ?? ? Shape: Not taller than wide (0). ?? ? Margins: Smooth (0). ?? ? Echogenic Foci: None (0).? ACR TI-RADS total points: 2 Previous: n/a ?? ? ACR TI-RADS category: 2 Previous: n/a ? Significant change in size (>/= 20% in 2 dimensions and minimal increase of 2 mm or 50% or greater increase in volume): Minimal. ?? ? Change in features: None. ?? ? Change in ACR TI-RADS risk category: n/a 2.? Location: Right superior. ?? ? Size: 0.80 x 0.30 x 0.70 cm, volume 0.09 mL. ?? ? Previously: 0.70 x 0.40 x 0.80 cm, volume 0.12 mL. ?? ? Nodule characteristics: ?? ? Composition: Solid (2). ?? ? Echogenicity: Isoechoic (1). ?? ? Shape: Not taller than wide (0). ?? ? Margins: Smooth (0). ?? ? Echogenic Foci: Peripheral calcifications (2).? ACR TI-RADS total points: 5 Previous: n/a ?? ? ACR TI-RADS category: 4 Previous: n/a ? Significant change in size (>/= 20% in 2 dimensions and minimal increase of 2 mm or 50% or greater increase in volume): None. ?? ? Change in features: None. ?? ? Change in ACR TI-RADS risk category: n/a 3.? Location: Right inferior. ?? ? Size: 1.5 x 0.70 x 0.80 cm, volume 0.44 mL. ?? ? Previously: 0.54 x 0.45 x 0.50 cm, volume 0.06 mL. ?? ? Nodule characteristics: ?? ? Composition: Solid (2). ?? ? Echogenicity: Hypoechoic (2). ?? ? Shape: Not taller than wide (0). ?? ? Margins: Smooth (0). ?? ? Echogenic Foci: Punctate echogenic foci (3). ? ACR TI-RADS total points: 7 Previous: n/a ?? ? ACR TI-RADS category: 5 Previous: n/a ? Significant change in size (>/= 20% in 2 dimensions and minimal increase of 2 mm or 50% or greater increase in volume): Significant increase. ?? ? Change in features: Slightly heterogeneous. ?? ? Change in ACR TI-RADS risk category: n/a 4.? Location: Left mid. ?? ? Size: 4.3 x 2.4 x 2.8 cm, volume 15.0 mL. ?? ? Previously: 4.2 x 2.2 x 3.0 cm, volume 14.5 mL. ?? ? Nodule characteristics: ?? ? Composition: Solid/almost completely solid (2). ?? ? Echogenicity: Isoechoic (1). ?? ? Shape: Not taller than wide (0). ?? ? Margins: Smooth (0). ?? ? Echogenic Foci: Punctate echogenic foci (3). ? ACR TI-RADS total points: 6 Previous: n/a ?? ? ACR TI-RADS category: 4 Previous: n/a ? Significant change in size (>/= 20% in 2 dimensions and minimal increase of 2 mm or 50% or greater increase in volume): None ?? ? Change in features: None ?? ? Change in ACR TI-RADS risk category: n/a NODES: No lymphadenopathy is seen in the tissue surrounding the thyroid gland. Labs: Laboratory Tests 03/12/21 03/12/21 03/12/21 07:45 07:45 07:45 Creatinine 0.84 Estimated GFR > 60 Phosphorus 3.7 Total Bilirubin 0.4 AST 15 ALT 12 Alkaline Phosphata se 71 Total Protein 6.6 Albumin 4.6 25-OH Vitamin D To angelita 51.6 TSH 2.95 Free T4 0.95 Total Testosterone 76 H Fr Testosterone Di olinda 5.4 H Androstenedione 102 DHEA Sulfate 68 PTH Intact 35 Calcium (PTH Intac t) 9.4 ACTH 56 H 17-Hydroxyprogeste clarice 113 On most recent ultrasound that was left upper pole nodule subcentimeter which showed some calcifications PFSH Medical History Interstitial cystitis UTI (urinary tract infection) Uterine fibroid Renal cyst Liver mass Hyperandrogenism Hair loss Vitamin D deficiency Multinodular thyroid Surgical History Hx of appendectomy Hx of lumpectomy Family History Father Myelodysplasia (myelodysplastic syndrome) Mother Goiter Abdominal aortic aneurysm Maternal Grandmother Goiter Paternal Grandmother Diabetes Social History Household Members: Spouse Alcohol intake: current Alcohol intake frequency: holidays/special occasions only Alcohol type: wine Patient Tobacco Use Status: Never used Tobacco Physical Exam Const Other: Thyroid gland is large in size weighs about g. There are no palpable thyroid nodule Assessment & Plan Assessment & Plan (1) Multinodular thyroid: Code(s): E04.2 - Nontoxic multinodular goiter Plan: 77-year-old white female with a history of multinodular goiter She had FNA of her RMP, LMP and LLP nodules in 2011, all benign. She then underwent repeat FNA biopsy 06/30/2019 of a 4.2 cm L sided thyroid nodule and a 1.1 cm RLP nodule. Both with benign cytology. She appears to be clinically euthyroid. Recent thyroid ultrasound showed the presence of a left upper pole nodule calcification which was new Plan is to check TSH and free T4. Assuming above is normal will discuss options with patient including FNA of left upper pole nodule as suggested by Radiology, continued surveillance with ultrasounds versus referral for a 2nd opinion of thyroid ultrasound at [facility] versus thyroid surgery. The patient is going to think about these options and get back to me. Orders: Orders Thyroid Stimulating Hormone Today E04.2 - Nontoxic multinodular goiter Free T4 (Free Thyroxine) Today E04.2 - Nontoxic multinodular goiter Coding Level of Care Code Est Pt Level 3 (61835) Diagnoses Multinodular thyroid E04.2
[2023-08-10 15:33] VITALS: BP 134/62; PULSE 72; BMI 18.4
== END 2023-08-10 16:13 | disposition home or self-care (01) ==
PROVIDERS: PCP Internal Medicine; Referring Provider Internal Medicine; Visit Provider Internal Medicine Endocrinology, Diabetes & Metabolism
DX: E04.2 Nontoxic multinodular goiter (principal)
CPT/HCPCS: 99213

== ENCOUNTER → 2023-08-10 15:30 | Outpatient (BNVA) | payer MEDICARE, SELFPAY | PROVIDERS: PCP Internal Medicine; Referring Provider Internal Medicine; Visit Provider Internal Medicine Endocrinology, Diabetes & Metabolism | DX: E04.2 Nontoxic multinodular goiter (principal) | CPT/HCPCS: 99212 ==

== ENCOUNTER 2024-11-14 13:34 | Outpatient (AMB) | payer MEDICARE, SELFPAY ==
--- NOTE | 2024-11-14 13:41 | A.OFFVIS_ITS ---
Vital Signs 11/14/24 13:43 Height 5 ft 4 in Weight 108 lb 14.534 oz BMI 18.7 BP 110/56 L Blood Pressure Location Lt brachial Position Sitting Pulse 77 Pulse Source Pulse Oximeter Pulse Oximetry (%) 96 Oxygen Delivery Method Room Air Intake Visit Reasons: Multiple Thyroid Nodules Intake Note: Patient present today for Multiple Thyroid Nodules. Site Inspector Required: No Accompanied by: Self / Same As Patient Allergies perfume Allergy (Mild, Verified 11/14/24 13:45) RASH Latex Gloves Allergy (Unknown, Uncoded 11/14/24 13:45) Unknown SOIL Allergy (Unknown, Uncoded 11/14/24 13:45) RASH Medication List - Last Reconciled 11/14/24 by Jacquelyn Lundy MD ascorbic acid (vitamin C) mg PO atorvastatin (Lipitor) 10 mg PO BEDTIME biotin 5,000 mcg sublingual DAILY cholecalciferol (vitamin D3) (Vitamin D3) 25 mcg PO DAILY digoxin 125 mcg PO DAILY melatonin (Melatin) 3 mg PO BEDTIME PRN [id number]-cci-ypij-folic-vit K1 8 mg-400 mcg- 10 mcg (Centrum Chewables) 1 tab PO DAILY mupirocin 2% 1 appl topical BID tretinoin 0.025% appl topical BEDTIME HPI Comments Details: 79 YO F with PMHx NTMNG who is seen in F/U for her NTMNG and also hyperandrogenism. She was previously followed by Dr. Mustafa.. Then Dr. Reynoso and last saw Dr. Campbell in July 2023. 1) NTMNG: She has a long history of a multinodular thyroid. She was previously followed by [facility], and was initially diagnosed in 2011. She had FNA of her RMP, LMP and LLP nodules in 2011, all benign. She then underwent repeat FNA biopsy 06/30/2019 of a 4.2 cm L sided thyroid nodule and a 1.1 cm RLP nodule. Both with benign cytology. She then was lost to F/U during the COVID-19 pandemic, but subsequently reestablished care. She had a repeat US which revealed interval growth of her RLP nodule to 1.5 cm. Her LMP nodule was stable at 4.5 cm. She did meet indication for FNA biopsy of her RLP 1.5 cm nodule, and requested FNA biopsy of her LMP 4.5 cm thyroid nodule for peace of mind. I did review with her that this was not indicated, but she insisted on having it completed. She underwent FNA biopsy 03/28/2021 of her RLP 1.5 cm thyroid nodule and her LMP 4.5 cm thyroid nodule both with benign ([facility]hesda category II) cytology. She denies any significant compressive symptoms. She does report hair loss, but otherwise feels well. Her ROS is otherwise negative at this time. Most recent thyroid ultrasound from March 2022 which showed a left superior 1 cm TR 4 category nodule which was solid isoechoic with punctate echogenic foci, which meets criteria for follow up. The left midpole 4.5 cm nodule remained stable which has been biopsied twice at least before and was benign. No need for further investigation of this. The right midpole 1 cm nodule which is solid hypoechoic with peripheral calcifications TR 5 category, has increased significantly in size from 0.8 X 0.3 X 0.7 cm to 1 X 0.5 X 0.8 cm. This technically meets criteria for FNA, however this was on ultrasound in 2021 at this time I would like to get some fresh images 1st. The right inferior 1.3 cm solid hypoechoic nodule with punctate echogenic foci remained stable in size, this has also been biopsied twice before and was benign. 2) Hyperandrogenism: Elevated baseline cortisol She was complaining of hair loss so we checked a full androgen panel which revealed elevated free and total testosterone in 2020 . Her US Ovaries revealed uterine fibroids, but no ovarian massess.. Her CT of the adrenals 2020 revealed no adrenal mass Her Cortisol and ACTH were elevated in 2020. She was asked to complete a dexamethasone suppression test but has refused. Normal salivary cortisol levels in 2021. At this time she does not have hypertension, no history of diabetes, she does not have any bothersome hyper androgenic symptoms, the testosterone was mildly elevated, no history of fragility fracture/known osteoporosis. At this time no need to further pursue. Physical exam General: sitting comfortably in no acute distress HEENT: normocephalic/atraumatic, Neck: supple, palpable 3 cm left-sided nodule Cardiac: normal heart sounds Pulm: normal breath sounds B/L, no added breath sounds Abd: not distended, no tenderness Extremities: no edema, no signs of myxedema Labs: Laboratory Tests 03/12/21 03/12/21 03/12/21 07:45 07:45 07:45 Creatinine 0.84 Estimated GFR > 60 Phosphorus 3.7 Total Bilirubin 0.4 AST 15 ALT 12 Alkaline Phosphatase 71 Total Protein 6.6 Albumin 4.6 25-OH Vitamin D Total 51.6 TSH 2.95 Free T4 0.95 Total Testosterone 76 H Fr Testosterone Dialys 5.4 H Androstenedione 102 DHEA Sulfate 68 PTH Intact 35 Calcium (PTH Intact) 9.4 ACTH 56 H 17-Hydroxyprogesterone 113 Laboratory Tests 03/12/21 04/30/21 01/18/22 07:45 14:10 00:00 Total Testosterone 76 H 68 H Fr Testosterone Dialys 5.4 H 5.1 H Saliva Cortisol <0.03 US THYROID 03/03/22 CLINICAL INFORMATION: Nontoxic multinodular goiter. COMPARISON: Ultrasound thyroid 01/03/2021 and 05/05/2019. US-guided thyroid biopsy 03/28/2021. TECHNIQUE: Linear transducer grayscale and color Doppler examination with attention to the region of the thyroid. FINDINGS: SIZE: Measurements of the thyroid lobes and nodules are given in sagittal, anteroposterior and transverse dimensions respectively. Right Thyroid Lobe: 4.9 x 1.6 x 1.4 cm, volume 4.7 mL. Previously 5.0 x 1.2 x 1.4 cm, volume 4.4 mL. Parenchyma: The gland echotexture is heterogeneous. Thyroid vascularity is increased. Left Thyroid Lobe: 5.1 x 2.6 x 2.9 cm, volume 20.6 mL. Previously 5.3 x 2.3 x 3.1 cm, volume 19.8 mL. Parenchyma: The gland echotexture is heterogeneous. Thyroid vascularity is increased. Isthmus: 0.1 cm in maximum AP dimension. Previously 0.2 cm. Estimated total number of nodules greater than or equal to 1 cm: 4. [employer] nodules are described as follows: 1. Location: Left superior. Size: 1.0 x 0.9 x 0.9 cm, volume 0.41 mL. Previously: New since the previous study. Nodule characteristics: Composition: Solid/almost completely solid (2). Echogenicity: Isoechoic (1). Shape: Not taller than wide (0). Margins: Smooth (0). Echogenic Foci: Punctate echogenic foci (3). ACR TI-RADS total points: 6 ACR TI-RADS category: 4 2. Location: Left mid. Size: 4.5 x 2.2 x 2.9 cm, volume 14.8 mL. Previously: 4.3 x 2.4 x 2.8 cm, volume 15.0 mL. Nodule characteristics: Composition: Solid/almost completely solid (2). Echogenicity: Isoechoic (1). Shape: Not taller than wide (0). Margins: Smooth (0). Echogenic Foci: Punctate echogenic foci (3). ACR TI-RADS total points: 6 Previous: 6 ACR TI-RADS category: 4 Previous: 4 Significant change in size (>/= 20% in 2 dimensions and minimal increase of 2 mm or 50% or greater increase in volume): Change in features: Change in ACR TI-RADS risk category: 3. Location: Right mid. Size: 1.0 x 0.5 x 0.8 cm, volume 0.22 mL. Previously: 0.8 x 0.3 x 0.7 cm, volume 0.03 mL. Nodule characteristics: Composition: Solid (2). Echogenicity: Hypoechoic (2). Shape: Not taller than wide (0). Margins: Irregular (2). Echogenic Foci: Peripheral calcifications (2). ACR TI-RADS total points: 8 Previous: 5 ACR TI-RADS category: 5 Previous: 4 Significant change in size (>/= 20% in 2 dimensions and minimal increase of 2 mm or 50% or greater increase in volume): Change in features: Change in ACR TI-RADS risk category: 4. Location: Right inferior. Size: 1.3 x 0.9 x 0.9 cm, volume 0.55 mL. Previously: 1.5 x 0.7 x 0.8 cm, volume 0.44 mL. Nodule characteristics: Composition: Solid (2). Echogenicity: Hypoechoic (2). Shape: Not taller than wide (0). Margins: Smooth (0). Echogenic Foci: Punctate echogenic foci (3). ACR TI-RADS total points: 7 Previous: 7 ACR TI-RADS category: 5 Previous: 5 Significant change in size (>/= 20% in 2 dimensions and minimal increase of 2 mm or 50% or greater increase in volume): Change in features: Change in ACR TI-RADS risk category: NODES: No lymphadenopathy is seen in the tissue surrounding the thyroid gland. US/US thyroid IMPRESSION: Heterogeneous hypervascular thyroid gland with bilateral nodules. The left lobe is slightly enlarged. There is a newly appreciated nodule in the upper pole of the left lobe. This has punctate calcifications and according to TI RADS criteria, fine-needle aspiration should be considered. Nodules otherwise do not appear appreciably changed. CT Abdomen: 04/30/2021 FINDINGS: LUNG BASES: The lung bases are clear.? LIVER, GALLBLADDER, AND BILIARY TREE: There are innumerable low-attenuation liver lesions suggestive of a small cyst. The liver is otherwise unremarkable. The gallbladder is unremarkable. There is no biliary duct dilatation.? PANCREAS: Unremarkable.? SPLEEN: Unremarkable. ADRENAL GLANDS AND KIDNEYS: The adrenal glands are normal. No focal lesion is seen. There is a small 1 cm cyst in the lower pole of the left kidney. No imaging follow-up is indicated. The kidneys are otherwise unremarkable. BOWEL LOOPS: Unremarkable. The visualized distal thoracic esophagus appears slightly dilated and filled with air. LYMPH NODES: Normal. VASCULAR: There are prominent bilateral ovarian veins. There is evidence of atherosclerotic disease. No aneurysm is seen. Vascular structures are otherwise unremarkable. BONES: There are degenerative changes of the spine and scoliosis. There are small sclerotic lesions seen in the L2 vertebral body and visualized right iliac bone. Ovarian US: 05/09/2021 FINDINGS: Uterus: The uterus is anteverted and measures 6.6 x 3.6 x 4.9 cm. The double wall endometrial thickness is 0.4 to 0.5 mm.? The uterus is smooth in contour and has normal myometrial echogenicity. ? No visible fibroid. FIBROIDS: There are 4 fibroids seen. ?1. Location: Anterior lower uterine segment, myometrial. ?? ? Size: 1.6 x 1.0 x 1.3 cm. ?? ? Fibroid characteristics: Heterogeneously hypoechoic. ?2. Location: Posterior mid body, myometrial. ?? ? Size: 1.7 x 1.4 x 1.7 cm. ?? ? Fibroid characteristics: Heterogeneous echotexture. ?3. Location: Anterior mid body, myometrial. ?? ? Size: 1.5 x 0.6 x 1.1 cm. ?? ? Fibroid characteristics: Heterogeneous hypoechoic. ?4. Location: Rightward fundus. ?? ? Size: 2.4 x 2.7 x 2.3 cm. ?? ? Fibroid characteristics: Coarsely calcified, with shadowing. Adnexa: Both ovaries are visualized. There is normal color flow to the adnexa. There is no ovarian torsion.? There is a small amount nonspecific free fluid in the cul-de-sac. Right ovary measures 2.2 x 1.4 x 0.9 cm (volume 1.5 mL). Left ovary measures 2.0 x 1.4 x 1.4 cm (volume 1.6 mL). Thyroid US 01/03/2021: Right Thyroid Lobe: 4.9 x 1.6 x 1.1 cm, volume 4.7 mL. Previously 4.9 x 1.5 x 1.7 cm, volume 6.6 mL. Parenchyma: The gland echotexture is heterogeneous. Thyroid vascularity is increased. Left Thyroid Lobe: 5.1 x 2.6 x 2.9 cm, volume 20.6 mL. Previously 5.7 x 2.5 x 2.9 cm, volume 21.8 mL. Parenchyma: The gland echotexture is heterogeneous. Thyroid vascularity is increased. Isthmus: 0.20 cm in maximum AP dimension. Previously 0.20 cm. Estimated total number of nodules greater than or equal to 1 cm: 2. [employer] nodules are described as follows: 1.? Location: Right superior. ?? ? Size: 0.80 x 0.30 x 0.60 cm, volume 0.08 mL. ?? ? Previously: 0.50 x 0.30 x 0.40 cm, volume 0.03 mL. ?? ? Nodule characteristics: ?? ? Composition: Mixed cystic and solid (1). ?? ? Echogenicity: Hyperechoic (1). ?? ? Shape: Not taller than wide (0). ?? ? Margins: Smooth (0). ?? ? Echogenic Foci: None (0).? ACR TI-RADS total points: 2 Previous: n/a ?? ? ACR TI-RADS category: 2 Previous: n/a ? Significant change in size (>/= 20% in 2 dimensions and minimal increase of 2 mm or 50% or greater increase in volume): Minimal. ?? ? Change in features: None. ?? ? Change in ACR TI-RADS risk category: n/a 2.? Location: Right superior. ?? ? Size: 0.80 x 0.30 x 0.70 cm, volume 0.09 mL. ?? ? Previously: 0.70 x 0.40 x 0.80 cm, volume 0.12 mL. ?? ? Nodule characteristics: ?? ? Composition: Solid (2). ?? ? Echogenicity: Isoechoic (1). ?? ? Shape: Not taller than wide (0). ?? ? Margins: Smooth (0). ?? ? Echogenic Foci: Peripheral calcifications (2).? ACR TI-RADS total points: 5 Previous: n/a ?? ? ACR TI-RADS category: 4 Previous: n/a ? Significant change in size (>/= 20% in 2 dimensions and minimal increase of 2 mm or 50% or greater increase in volume): None. ?? ? Change in features: None. ?? ? Change in ACR TI-RADS risk category: n/a 3.? Location: Right inferior. ?? ? Size: 1.5 x 0.70 x 0.80 cm, volume 0.44 mL. ?? ? Previously: 0.54 x 0.45 x 0.50 cm, volume 0.06 mL. ?? ? Nodule characteristics: ?? ? Composition: Solid (2). ?? ? Echogenicity: Hypoechoic (2). ?? ? Shape: Not taller than wide (0). ?? ? Margins: Smooth (0). ?? ? Echogenic Foci: Punctate echogenic foci (3). ? ACR TI-RADS total points: 7 Previous: n/a ?? ? ACR TI-RADS category: 5 Previous: n/a ? Significant change in size (>/= 20% in 2 dimensions and minimal increase of 2 mm or 50% or greater increase in volume): Significant increase. ?? ? Change in features: Slightly heterogeneous. ?? ? Change in ACR TI-RADS risk category: n/a 4.? Location: Left mid. ?? ? Size: 4.3 x 2.4 x 2.8 cm, volume 15.0 mL. ?? ? Previously: 4.2 x 2.2 x 3.0 cm, volume 14.5 mL. ?? ? Nodule characteristics: ?? ? Composition: Solid/almost completely solid (2). ?? ? Echogenicity: Isoechoic (1). ?? ? Shape: Not taller than wide (0). ?? ? Margins: Smooth (0). ?? ? Echogenic Foci: Punctate echogenic foci (3). ? ACR TI-RADS total points: 6 Previous: n/a ?? ? ACR TI-RADS category: 4 Previous: n/a ? Significant change in size (>/= 20% in 2 dimensions and minimal increase of 2 mm or 50% or greater increase in volume): None ?? ? Change in features: None ?? ? Change in ACR TI-RADS risk category: n/a NODES: No lymphadenopathy is seen in the tissue surrounding the thyroid gland. PFSH Medical History Interstitial cystitis UTI (urinary tract infection) Uterine fibroid Renal cyst Liver mass Hyperandrogenism Hair loss Vitamin D deficiency Multinodular thyroid Surgical History Hx of appendectomy Hx of lumpectomy Family History Father Myelodysplasia (myelodysplastic syndrome) Mother Goiter Abdominal aortic aneurysm Maternal Grandmother Goiter Paternal Grandmother Diabetes Social History Household Members: Spouse Alcohol intake: current Alcohol intake frequency: holidays/special occasions only Alcohol type: wine Patient Tobacco Use Status: Never used Tobacco Physical Exam Vital Signs: Last Vital Signs Pulse 77 11/14/24 13:43 BP 110/56 L 11/14/24 13:43 Pulse Ox 96 11/14/24 13:43 Oxygen Delivery Method Room Air 11/14/24 13:43 BMI result Body Mass Index 18.7 Assessment & Plan Assessment & Plan (1) Multinodular thyroid: Code(s): E04.2 - Nontoxic multinodular goiter Category: Medical Plan: 79-year-old female with no family history of thyroid cancer with no personal history of head or neck radiation who is coming in today for follow up of nontoxic multinodular goiter. She was initially followed at [facility], diagnosed with thyroid nodules in 2011, FNA biopsy of the right midpole, left midpole and left lower pole nodules in 2011 were reportedly benign. 06/30/2019: FNA biopsy of the 4.2 cm left-sided nodule and the right lower pole 1.1 cm nodule were benign. Then she had interval growth of the right lower pole nodule to 1.5 cm on repeat ultrasound in 2020, however was insistent on repeating biopsy of the left midpole nodule as well. 03/28/2021: Repeat FNA biopsy of the right lower pole 1.5 cm and the left midpole 4.5 cm thyroid nodules was again benign [place] category 2. Most recent thyroid ultrasound from March 2022 which showed a left superior 1 cm TR 4 category nodule which was solid isoechoic with punctate echogenic foci, which meets criteria for follow up. The left midpole 4.5 cm nodule remained stable which has been biopsied twice at least before and was benign. No need for further investigation of this. The right midpole 1 cm nodule which is solid hypoechoic with peripheral calcifications TR 5 category, has increased significantly in size from 0.8 X 0.3 X 0.7 cm to 1 X 0.5 X 0.8 cm. This technically meets criteria for FNA, however this was on ultrasound in 2021 at this time I would like to get some fresh images 1st. The right inferior 1.3 cm solid hypoechoic nodule with punctate echogenic foci remained stable in size, this has also been biopsied twice before and was benign. Last TFTs in 2020 were unremarkable. No recent TFTs in the chart. We will repeat. She does not have any compressive symptoms. Plan: -ordered ultrasound of the thyroid -ordered TSH and free T4 -follow up in 5 weeks to discuss results Plan See above Orders: Orders Thyroid Stimulating Hormone Today E04.2 - Nontoxic multinodular goiter Free T4 (Free Thyroxine) Today E04.2 - Nontoxic multinodular goiter US thyroid Today E04.2 - Nontoxic multinodular goiter Patient Instructions: Do thyroid blood work Do ultrasound of the thyroid , someone will call you to schedule this Follow up in 5 weeks to discuss results Coding Level of Care Code Est Pt Level 3 (47337) Diagnoses Multinodular thyroid E04.2
[2024-11-14 13:43] VITALS: BP 110/56; PULSE 77; O2SAT 96; BMI 18.7
--- OUTSIDE RECORDS SUMMARY | 2024-11-14 15:06 | XMS_ITS | Clinical Summary ---
Author Organization [facility] [address] [facility] Address [address] [place] [address] Phone Care Team Providers Care Restaurant Team Member Name Role Phone Lisa Lala MD Primary Care Provider [phone] Allergies Active Allergy Reactions Criticality Noted Date Comments Latex 07/22/2013 Other Reaction(s): Rash/Dermatitis Medications melatonin 1 mg tablet Take 3 tablets (3 mg total) by mouth if needed. Active calcium carbonate (TUMS ORAL) Take by mouth 1 (one) time each day. Active CHOLECALCIFERO L, VITAMIN D3, ORAL Take by mouth. Active multivit-min/i honorio/FA/vit K/lut (CENTRUM SILVER WOMEN ORAL) Take by mouth. CENTRUM SILVER 50+WOMEN Active biotin 1 mg tablet Take 5 tablets (5,000 mcg total) by mouth 1 (one) time each day. 2500, taking half of 5000 Active ascorbic acid (VITAMIN C) 500 mg tablet Take 4 tablets (2,000 mg total) by mouth 1 (one) time each day. Active digoxin (LANOXIN) 125 mcg (0.125 mg) tablet TAKE 1 TABLET BY MOUTH EVERY DAY 90 tablet 2 5 Active atorvastatin (Lipitor) 10 mg tablet Take 1 tablet (10 mg total) by mouth at bedtime. 90 each 3 5 10/21/19 26 Active rosuvastatin (Crestor) 5 mg tablet Take 1 tablet (5 mg total) by mouth every other day. 45 each 3 5 10/21/19 25 Discontinued Active Problems Problem Noted Date Diagnosed Date Atypical chest pain 07/01/2023 Overview (05/30/2024): - See stress test under PSVT section Last Assessment & Plan: Sounds more GI in nature at this point, I do not feel strongly about stress testing at this point and the patient is okay with this as well. I asked her to look out for more exertional symptoms or change in quality or severity of symptoms at which point we can consider ischemic workup. Hepatic cyst 10/01/2021 Overview (05/30/2024): [facility] Elevated testosterone level 07/19/2021 Overview (05/30/2024): Last Assessment & Plan: I explained to Sasha that while her levels are mildly elevated, these may be physiologic in menopause. They are not at the level that we would expect for a testosterone secreting tumor. In any case, if they were significantly elevated, we would order a pelvic US and a CT scan to evaluate the ovaries and adrenals for evidence of tumor. She has already had this evaluation and it is negative. As such, I think it is reasonable to repeat the labs in a few months and as long as stable, no need for concern. She voiced understanding and agreed. She should follow up with Endocrine, Urology, and GI as scheduled. 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 Likely cause for her dysuria. Likely to be improved with topical estradiol cream. She agreed to try it. Epigastric pain 03/07/2015 Overview (05/30/2024): Chronic epigastric pain for many years. Hiatal hernia 03/03/2015 Paroxysmal supraventricular tachycardia (CMS/HCC V24) 04/13/2013 Overview (05/30/2024): -Diagnosed incidentally in work-up of symptoms of atypical chest pain and shortness of breath with stress echocardiogram on 04/08/2012-at peak exercise, she had bursts of atrial tachycardia up to 207 bpm, the echocardiographic portion showed no evidence of ischemia or infarction at 134% of max predicted heart rate after 5 minutes of exercise -Was treated with digoxin monotherapy given low resting blood pressure at the time -Has had infrequent palpitation episodes here they are but nothing severe on monotherapy with digoxin -Had a subsequent exercise stress echocardiogram on 10/25/2015-again for chest pain symptoms-he exercised for 6-1/2 minutes this time, to 110% of max predicted heart rate with sharp pain 1 minute into recovery that quickly resolved but is different than the pain she presented with with normal biventricular size and systolic function on resting echo, ejection fraction 60 to 65% with normal regional wall motion, stress echo showing normal augmentation of all segments without evidence of ischemia or infarction Last Assessment & Plan: No major recurrences, continue monotherapy with digoxin. Multiple thyroid nodules 08/21/2011 Low gammaglobulin level (CMS/HCC V24) 05/17/2010 Raynaud disease 05/17/2010 Overview (05/30/2024): Last Assessment & Plan: No ulcerations or major manifestations or other signs or symptoms of significant pulmonary hypertension. She does have gastroesophageal reflux disease so crest did come to mind but based on her clinical presentation, I am less suspicious of this. I believe she has isolated Raynaud's. I did offer to start her on a calcium channel katrin but given her low blood pressure at baseline, I mentioned that this could cause side effects of hypotension and lightheadedness. She would like to hold off. We discussed conservative strategies including keeping her hands warm at all times, wearing gloves if needed. Abnormal blood chemistry 04/06/2009 Hypercholesterolemia 02/26/2007 Overview (05/30/2024): - Developed isolated knee pain with atorvastatin use at 20 mg that went completely away when she stopped using the statin Last Assessment & Plan: Unfortunately, she is intolerant of statins and really does not want to go back on 1. I have given her the names of 2 PCSK9 inhibitors as well as inclisiran- alternative lipid-lowering agents. I explained that I am very concerned given the degree of her lipid elevation that puts her at fairly significant risk for 10-year cardiovascular events. She verbalized understanding of this and will look into the information I have given her. Acne 01/21/2006 Chronic interstitial cystitis 01/21/2006 Fibromyalgia 01/21/2006 Overview (05/30/2024): IMO update Hemorrhage of rectum and anus 01/21/2006 Irritable bowel syndrome 01/21/2006 Leiomyoma of uterus 01/21/2006 Lumbago 01/21/2006 Overview (05/30/2024): bulging disc L4-L5 Unspecified glaucoma(365.9) 01/21/2006 Encounters Date Type Department Care Team Description 10/25/2024 Telephone [facility] [address] [place] [phone] Kelley Diallo MD Wait List 10/06/2024 Telephone [facility] [place] [address] [place] [phone] Radha Hardin MA Lab Results 09/21/2024 2:50 PM EDT - 09/21/2024 11:59 PM EDT Hospital Encounter Radiology Department - [address] [address] Abnormal mammogram Discharge Disposition: Home or Self Care 09/21/2024 2:08 PM EDT - 09/21/2024 11:59 PM EDT Hospital Encounter Radiology Department - [address] [address] Abnormal mammogram Discharge Disposition: Home or Self Care 09/13/2024 Telephone [facility] - [address] [place] [phone] Kelley Diallo MD Lab Results (Lab result ) 08/30/2024 Telephone Adult Medicine [address] [phone] Lisa Lala MD 08/29/2024 1:30 PM EDT Office Visit Adult Medicine [address] [phone] Yumiko Herrmann PA Annual physical exam (Primary Dx); Influenza vaccination declined; Colon cancer screening; Multiple thyroid nodules 08/24/2024 Telephone [facility] [address] [facility] [address] [place] [address] Kelley Diallo MD Med Refill (Digoxin ) from Last 3 Months Immunizations Name Administration Dates Next Due Influenza trivalent, with pr eservative (Fluzone; Afluria) 6mo and older 03/03/2008 Pneumococcal conjugate 13 va lent (Prevnar 13, PCV13) 2mo and older 07/26/2014 Pneumococcal polysaccharide 23 valent (Pneumovax 23) 2yo and older 03/03/2012 Td Tetanus diptheria (Tdvax) 7yo and older 09/30,01/30/2006,06/01/1993 Tdap Tetanus diptheria acell ular pertussis (Boostrix; Adacel) 7yo and older 08/06/2011 Surgical History Surgery Date Site/Laterality Comments APPENDECTOMY 06/01/1952 - 05/31/1953 COLONOSCOPY 06/01/1999 - 07/01/1999 PROCEDURE: HISTORICAL COLONOSCOPY; COMMENT: normal ESOPHAGOGASTRODUODENOSCOPY 06/01/2000 - 05/31/2001 COLONOSCOPY 06/01/2013 - 05/31/2014 COMMENT: no polyps, minimal diverticulosis BREAST SURGERY 06/01/1984 - 05/31/1985 Left lumpectomy SKIN CANCER EXCISION 3 BCC, 2 SCC THYROID BIOPSY nodule x 4 Medical History Medical History Date Comments Myalgia and myositis, unspecified 01/21/2006 DX:Myalgia and myositis, unspecified Irritable bowel syndrome 01/21/2006 DX:Irri table bowel syndrome Lumbago 01/21/2006 DX:Lumbago Other acne 01/21/2006 DX:Other acne Chronic interstitial cystitis 01/21/2006 DX :Chronic interstitial cystitis Leiomyoma of uterus, unspecified 01/21/2006 DX:Leiomyoma of uterus, unspecified Unspecified glaucoma(365.9) 01/21/2006 DX:U nspecified glaucoma(365.9) Hemorrhage of rectum and anus 01/21/2006 DX :Hemorrhage of rectum and anus Pure hypercholesterolemia 02/26/2007 DX:Pur e hypercholesterolemia Historical Medical DX 08/02/2007 DX:Other a nd unspecified malignant neoplasm of skin of other and unspecified parts of face Low gammaglobulin level ([facility] V24) 05/17/2010 DX:Low gammaglobulin level (HCC) SVT (supraventricular tachyc ardia) (CMS/[facility] V24) 04/13/2013 DX:SVT (supraventricular tac hycardia) ([facility]) Other specified personal his tory presenting hazards to health(V15.89) 2012 DX:Other specifie d personal history presenting hazards to health(V15.89); COMMENT: skin ca Epigastric pain 03/07/2015 DX:Epigastric pa in; COMMENT: Chronic epigastric pain for many years. BCC (basal cell carcinoma of skin) 12/30/2023 DX:BCC (basal cell carcinoma of skin); COMMENT: multiple Family History Medical History Relation Name Comments Coronary artery disease Aunt at 7 5 Diabetes Brother 1 Ovarian cancer Daughter 1 borderline c ancer and only had one ovary removed Melanoma Daughter 2 Other: myelodysplasia Father Coronary artery disease Maternal Grandmother Diabetes Maternal Grandmother Coronary artery disease Mother AAA, COPD (+smoker) Breast cancer Other maternal cousi n Coronary artery disease Other 2 co usins Diabetes Paternal Grandmother Relation Name Status Comments Aunt Brother 1 Brother 2 Alive Daughter 1 Alive Daughter 2 Alive Father Maternal Grandfather Maternal Grandmother Mother Other Alive Paternal Grandfather Paternal Grandmother Social History Tobacco Use Types Packs/Day Years Used Date Smoking Tobacco: Never Smokeless Tobacco: Never Tobacco Cessation:Counseling Given: Not Answered Alcohol Use Standard Drinks/Week Comments Yes 0 (1 standard drink = 0.6 oz pur e alcohol) 1 glass of wine monthly Housing Instability Answer Date Recorde d Are you worried that in the next 2 months you may not have stable housing? No 08/29/2024 Food Access & Nutrition Answer Date Rec orded Do you have access to a vari ety of food including fruits and vegetables? Yes 08/29/2024 Access to Healthcare Answer Date Record ed Within the last 3 months, markus salgado many times did you visit the emergency department for your medical care? 0 08/29/2024 Health Literacy Answer Date Recorded How often do you need to hav e someone help you when you read instructions, pamphlets, or other written material from your doctor or pharmacy? Never 08/29/2024 Caregiver: How often do you need to have someone help you when you read instructions, pamphlets, or other written material from your doctor or pharmacy? Not on file 08/29/2024 Financial Risk Answer Date Recorded How hard is it for you to pa y for the very basics like food, housing, medical care, and air conditioning / heating? Not very hard 08/29/2024 Transportation Answer Date Recorded Has the lack of transportati on kept you from meetings, work, or from getting things needed for daily living? No Has the lack of transportati on kept you from medical appointments or from getting medications? No 08/29/2024 Social Isolation Answer Date Recorded How often do you feel lonely or isolated from th ose around you? Never 08/29/2024 Food Risk Answer Date Recorded Within the past 12 months we worried whether our food would run out before we got money to buy more. Never true 08/29/2024 Within the past 12 months th e food we bought just didn't last and we didn't have money to get more. Never true 08/29/2024 Dependent Care Answer Date Recorded Do you need help finding or paying for care for your loved ones. For example, child day care center worker or elderly care for an older adult? No 08/29/2024 Education Answer Date Recorded Do you think completing more education or training, like finishing a GED, going to college, or learning a trade, would be helpful for you? No 08/29/2024 Employment and Income Answer Date Recor ded During the last four weeks, have you been actively looking for work? No 08/29/2024 Living Situation Answer Date Recorded What is your living situation? 0 08/29/2024 Education Answer Date Recorded What is the highest level of school you have completed or the highest degree you have received? 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 Not on file Not on file Not on file Obstetrics History Para Term AB IAB SAB Ectopic Multiple Livin g Live Births 5 5 5 Date Outcome GA Total Labor Labor/2nd/3rd Weight Sex Type Anes PTL Ana A1 A5 Name Clin Term Term Term Term Term Last Filed Vital Signs Vital Sign Reading Time Taken Comments Blood Pressure 100/56 08/29/2024 1:35 PM EDT Pulse 78 08/29/2024 1:35 PM EDT Temperature 36.3 ??C (97.4 ??F) 08/29/2024 1:35 PM ED T Respiratory Rate 14 08/29/2024 1:35 PM EDT Oxygen Saturation 98% 08/29/2024 1:35 PM EDT Inhaled Oxygen Concentration - - Weight 49.4 kg (109 lb) 08/29/2024 1:35 PM EDT Height 162.6 cm (5' 4 ) 08/29/2024 1:35 PM EDT Body Mass Index 18.71 08/29/2024 1:35 PM EDT Plan of Treatment Upcoming Encounters Date Type Department Care Team (Late st Contact Info) Description 04/19/2025 3:00 PM EST Office Visit [facility] [address] [phone] Kelley Diallo MD [address] [place] [address] 09/18/2025 3:00 PM EDT Office Visit Adult Medicine [address] [phone] Lisa Lala MD [address] [place] [phone] Health Maintenance Due Date Last Done Comments Zoster Vaccines (1 of 2) 1996 RSV Immunization Adult Patients (1 - 1-dose 75+ series) 2021 Medicare Annual Wellness Visit 05/10/2022 Osteoporosis Screening (Bone Density Screening) 05/10/2022 COVID-19 Vaccine (8 - Moderna risk season) 2024 02/16/2024, 03/13/2023, 03/10/2022, Additional history exists Influenza Vaccine (Season Ended) 2025 03/03/2008 Depression Screening 08/29/2025 08/29/2024 Falls Risk Assessment 08/29/2025 08/29/2024 Social Influencers of Health Screening 08/29/2025 08/29/2024 Cholesterol Screening (Lipid Panel) 09/08/2029 09/08/2024, 06/12/2023 DTaP,Tdap,and Td Vaccines (5 - Td or Tdap) 10/01/2031 09/30/2021, 08/06/2011, 01/30/2006, Additional history exists Hepatitis C Screening Completed 04/13/2013 Colorectal Cancer Screening: Colonoscopy Discontinued 09/06/2013 Pneumococcal Vaccine: 50+ Years Completed 07/26/2014, 03/03/2012 HIB Vaccines Aged Out No longer eligi ble based on patient's age to complete this topic HPV Vaccines Aged Out No longer eligi ble based on patient's age to complete this topic Hepatitis A Vaccines Aged Out No long er eligible based on patient's age to complete this topic Hepatitis B Vaccines Aged Out No long er eligible based on patient's age to complete this topic IPV Vaccines Aged Out No longer eligi ble based on patient's age to complete this topic MMR Vaccines Aged Out No longer eligi ble based on patient's age to complete this topic Meningococcal ACWY Vaccine Aged Out N o longer eligible based on patient's age to complete this topic Meningococcal B Vaccine Aged Out No l onger eligible based on patient's age to complete this topic RSV Immunization Patients Under 20 months Aged Out No longer eligible based on patient's age to complete this topic Varicella Vaccines Aged Out No longer eligible based on patient's age to complete this topic Procedures Procedure Name Priority Date/Time Associated Diagnosis Comments US BREAST LIMITED RIGHT Routine 09/21/2024 2:59 PM EDT Abnormal mammogram MG MAMMO DIGITAL DIAGNOSTIC W POP BILAT Routine 09/21/2024 2:28 PM EDT Abnormal mammogram BASIC METABOLIC PANEL Routine 09/08/2024 10:23 AM EDT Paroxysmal supraventricular tachycardia (CMS/HCC V24) DIGOXIN LEVEL Routine 09/08/2024 10:23 AM EDT Paroxysmal supraventricular tachycardia (CMS/HCC V24) LIPID PANEL WITH REFLEX TO DIRECT LDL Routine 09/08/2024 10:23 AM EDT Elevated cholesterol HEPATITIS C SCREENING Routine 04/13/2013 from Last 3 Months or Most Recently Relevant to Health Maintenance Results * US Breast Limited Right (09/21/2024 2:59 PM EDT) Anatomical Region Laterality Modality Breast Right Ultrasound 09/21/2024 3:08 PM EDT Narrative 09/21/2024 3:17 PM EDT Bilateral diagnostic mammogram. ??Targeted ultrasound of the right breast HISTORY: Follow-up on asymmetry in the left medial breast. Comparison with prior examinations including diagnostic studies on 04/08/2024 and 10/01/2023 as well as screening mammograms, latest from 09/04/2023 Full-field digital 2-D C views and Tomosynthesis mammograms were obtained bilaterally. ??Straight lateral and spot compression views of the right breast in CC and MLO projection were obtained. Breast tissue is heterogeneously dense limiting detection mammography. Right breast. Focal asymmetry visualized in the retroareolar upper breast mid 3rd depth was essentially effaced on the additional spot compression views and not clearly visible on straight lateral view. No suspicious masses, architectural distortion or new microcalcifications. ??Targeted ultrasound of the right upper breast revealed no evidence of cystic or solid masses or acoustic shadowing. Left breast. Focal asymmetry in the medial left breast appears to be less conspicuous than on previous examinations. ??No new focal abnormalities were identified. CONCLUSIONS: Heterogeneously dense breasts tissue. ??No suspicious mammographic abnormalities in the right breast. ??No suspicious ultrasonographic abnormalities in the right breast. ??Stable focal asymmetry in the left breast, most likely benign. ??Diagnostic bilateral mammogram is recommended in one year. ??Findings were explained to the patient. ??Patient is concerned about her mammograms and considering to have MRI examination of the breasts. ??It is not unreasonable, especially in the view of heterogeneously dense breast tissues. ??Ordering provider may send a request for MRI of the breasts. BIRADS 3, probably benign findings. -------- FINAL REPORT -------- Dictated By: Marifer Lamas Dictated Date: 09/21/2024 15:08 ET Assigned Physician: Marifer Lamas Reviewed and Electronically Signed By: Marifer Lamas Signed Date: 09/21/2024 15:17 ET Workstation ID: [id number] Transcribed By: Self Edit Transcribed Date: 09/21/2024 15:08 ET Procedure Note Mariefr Lamas MD - 09/21/2024 Bilateral diagnostic mammogram. Targeted ultrasound of the right breast HISTORY: Follow-up on asymmetry in the left medial breast. Comparison with prior examinations including diagnostic studies on04/08/2024 and 10/01/2023 as well as screening mammograms, latest from09/04/2023 Full-field digital 2-D C views and Tomosynthesis mammograms were obtainedbilaterally. Straight lateral and spot compression views of the rightbreast in CC and MLO projection were obtained. Breast tissue is heterogeneously dense limiting detection mammography. Right breast. Focal asymmetry visualized in the retroareolar upper breast mid 3rd depthwas essentially effaced on the additional spot compression views and notclearly visible on straight lateral view. No suspicious masses, architectural distortion or new microcalcifications.Targeted ultrasound of the right upper breast revealed no evidence ofcystic or solid masses or acoustic shadowing. Left breast. Focal asymmetry in the medial left breast appears to be less conspicuousthan on previous examinations. No new focal abnormalities wereidentified. CONCLUSIONS: Heterogeneously dense breasts tissue. No suspiciousmammographic abnormalities in the right breast. No suspiciousultrasonographic abnormalities in the right breast. Stable focalasymmetry in the left breast, most likely benign. Diagnostic bilateralmammogram is recommended in one year. Findings were explained to thepatient. Patient is concerned about her mammograms and considering tohave MRI examination of the breasts. It is not unreasonable, especiallyin the view of heterogeneously dense breast tissues. Ordering providermay send a request for MRI of the breasts. BIRADS 3, probably benign findings. -------- FINAL REPORT -------- Dictated By: Marifer Lamas Dictated Date: 09/21/2024 15:08 ET Assigned Physician: Marifer Lamas Reviewed and Electronically Signed By: Marifer Lamas Signed Date: 09/21/2024 15:17 ET Workstation ID: [id number] Transcribed By: Self Edit Transcribed Date: 09/21/2024 15:08 ET us Lisa Lala MD IMG US PROCEDURES Final Result * MG Mammo Digital Diagnostic w Pop bilat (09/21/2024 2:28 PM EDT) Anatomical Region Laterality Modality Breast Bilateral Mammography 09/21/2024 3:08 PM EDT Narrative 09/21/2024 3:17 PM EDT Bilateral diagnostic mammogram. ??Targeted ultrasound of the right breast HISTORY: Follow-up on asymmetry in the left medial breast. Comparison with prior examinations including diagnostic studies on 04/08/2024 and 10/01/2023 as well as screening mammograms, latest from 09/04/2023 Full-field digital 2-D C views and Tomosynthesis mammograms were obtained bilaterally. ??Straight lateral and spot compression views of the right breast in CC and MLO projection were obtained. Breast tissue is heterogeneously dense limiting detection mammography. Right breast. Focal asymmetry visualized in the retroareolar upper breast mid 3rd depth was essentially effaced on the additional spot compression views and not clearly visible on straight lateral view. No suspicious masses, architectural distortion or new microcalcifications. ??Targeted ultrasound of the right upper breast revealed no evidence of cystic or solid masses or acoustic shadowing. Left breast. Focal asymmetry in the medial left breast appears to be less conspicuous than on previous examinations. ??No new focal abnormalities were identified. CONCLUSIONS: Heterogeneously dense breasts tissue. ??No suspicious mammographic abnormalities in the right breast. ??No suspicious ultrasonographic abnormalities in the right breast. ??Stable focal asymmetry in the left breast, most likely benign. ??Diagnostic bilateral mammogram is recommended in one year. ??Findings were explained to the patient. ??Patient is concerned about her mammograms and considering to have MRI examination of the breasts. ??It is not unreasonable, especially in the view of heterogeneously dense breast tissues. ??Ordering provider may send a request for MRI of the breasts. BIRADS 3, probably benign findings. -------- FINAL REPORT -------- Dictated By: Marifer Lamas Dictated Date: 09/21/2024 15:08 ET Assigned Physician: Marifer Laams Reviewed and Electronically Signed By: Marifer Lamas Signed Date: 09/21/2024 15:17 ET Workstation ID: [id number] Transcribed By: Self Edit Transcribed Date: 09/21/2024 15:08 ET Procedure Note Marifer Lamas MD - 09/21/2024 Bilateral diagnostic mammogram. Targeted ultrasound of the right breast HISTORY: Follow-up on asymmetry in the left medial breast. Comparison with prior examinations including diagnostic studies on04/08/2024 and 10/01/2023 as well as screening mammograms, latest from09/04/2023 Full-field digital 2-D C views and Tomosynthesis mammograms were obtainedbilaterally. Straight lateral and spot compression views of the rightbreast in CC and MLO projection were obtained. Breast tissue is heterogeneously dense limiting detection mammography. Right breast. Focal asymmetry visualized in the retroareolar upper breast mid 3rd depthwas essentially effaced on the additional spot compression views and notclearly visible on straight lateral view. No suspicious masses, architectural distortion or new microcalcifications.Targeted ultrasound of the right upper breast revealed no evidence ofcystic or solid masses or acoustic shadowing. Left breast. Focal asymmetry in the medial left breast appears to be less conspicuousthan on previous examinations. No new focal abnormalities wereidentified. CONCLUSIONS: Heterogeneously dense breasts tissue. No suspiciousmammographic abnormalities in the right breast. No suspiciousultrasonographic abnormalities in the right breast. Stable focalasymmetry in the left breast, most likely benign. Diagnostic bilateralmammogram is recommended in one year. Findings were explained to thepatient. Patient is concerned about her mammograms and considering tohave MRI examination of the breasts. It is not unreasonable, especiallyin the view of heterogeneously dense breast tissues. Ordering providermay send a request for MRI of the breasts. BIRADS 3, probably benign findings. -------- FINAL REPORT -------- Dictated By: Marifer Lamas Dictated Date: 09/21/2024 15:08 ET Assigned Physician: Marifer Lamas Reviewed and Electronically Signed By: Marifer Lamas Signed Date: 09/21/2024 15:17 ET Workstation ID: [id number] Transcribed By: Self Edit Transcribed Date: 09/21/2024 15:08 ET us Lisa Lala MD IMG BI PROCEDURES Final Result * (ABNORMAL) Lipid panel with reflex to direct LDL (09/08/2024 10:23 AM EDT) Cholesterol 274(H) 0 - 200 mg/dL LAB CHEMISTRY METHOD 09/08/2024 1:08 PM EDT [facility] Triglycerides 143 0 - 150 mg/dL LAB CHEMISTRY METHOD 09/08/2024 1:08 PM EDT [facility] HDL 61 >=40 mg/dL LAB CHEMISTRY METHOD 09/08/2024 1:08 PM EDT [facility] LDL Calculated 184(H) 0 - 100 mg/dL LAB CHEMISTRY METHOD 09/08/2024 1:08 PM EDT [facility] VLDL Cholesterol Se 28.6 mg/dL LAB CHEMISTRY METHOD 09/08/2024 1:08 PM EDT [facility] Non HDL Chol. (LDL+VLDL) 213(H) <145 mg/dL LAB CHEMISTRY METHOD 09/08/2024 1:08 PM EDT [facility] Chol/HDL Ratio 4.5(H) 0.0 - 4.4 LAB CHEMISTRY METHOD 09/08/2024 1:08 PM EDT [facility] Blood Venous blood specimen / Unknown Venipuncture / Unknown 09/08/2024 10:23 AM EDT 09/08/2024 10:23 AM EDT us Kelley Diallo MD LAB BLOOD ORDERABLES Final Resu lt [facility] [address] [place] [address], * Digoxin level (09/08/2024 10:23 AM EDT) Digoxin Lvl 0.6 0.5 - 2.0 ng/mL LAB CHEMISTRY METHOD 09/08/2024 1:08 PM [facility] Blood Venous blood specimen / Unknown Venipuncture / Unknown 09/08/2024 10:23 AM EDT 09/08/2024 10:23 AM EDT us Kelley Diallo MD LAB BLOOD ORDERABLES Final Resu lt [facility] [address] [place] [address], * Basic metabolic panel (09/08/2024 10:23 AM EDT) Pathologist [facility] Sodium 140 133 - 145 mmol/L LAB CHEMISTRY METHOD 09/08/2024 8:05 PM [facility] Potassium 4.0 3.5 - 5.5 mmol/L LAB CHEMISTRY METHOD 09/08/2024 8:05 PM [facility] Chloride 106 96 - 110 mmol/L LAB CHEMISTRY METHOD 09/08/2024 8:05 PM [facility] CO2 26 21 - 32 mmol/L LAB CHEMISTRY METHOD 09/08/2024 8:05 PM [facility] Anion Gap 8 3 - 11 LAB CHEMISTRY METHOD 09/08/2024 8:05 PM [facility] Glucose 91 70 - 100 mg/dL LAB CHEMISTRY METHOD 09/08/2024 8:05 PM [facility] BUN 13 5 - 25 mg/dL LAB CHEMISTRY METHOD 09/08/2024 8:05 PM [facility] Creatinine 0.77 0.50 - 1.10 mg/dL LAB CHEMISTRY METHOD 09/08/2024 8:05 PM [facility] eGFR 80 >=60 mL/min/1. 73m2 LAB CHEMISTRY METHOD 09/08/2024 8:05 PM EDT [facility] Comment:Calculation based on the??Chronic Kidney Disease Epidemiology Collaboration (CKD-EPI) equation refit??without adjustment for race. BUN/Creatinine Ratio 16.9 LAB CHEMISTRY METHOD 09/08/2024 8:05 PM EDT [facility] Calcium 9.4 8.5 - 10.5 mg/dL LAB CHEMISTRY METHOD 09/08/2024 8:05 PM EDT [facility] Blood Venous blood specimen / Unknown Venipuncture / Unknown 09/08/2024 10:23 AM EDT 09/08/2024 10:23 AM EDT Kelley Diallo MD LAB BLOOD ORDERABLES Final Resu lt [facility] [address] [place] [address], * Hepatitis C Screening (04/13/2013) Hepatitis C Screening Abstracted Historical Provider HEALTH MAINTENANCE Final Result from Last 3 Months or Most Recently Relevant to Health Maintenance Insurance [employer] Care Teams Restaurant 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
== END 2024-11-14 14:22 | disposition home or self-care (01) ==
LOC: HO.ENCR 13:35
PROVIDERS: PCP Internal Medicine; Visit Provider Student in an Organized Health Care Education/Training Program
DX: E04.2 Nontoxic multinodular goiter (principal)
CPT/HCPCS: 99213

== ENCOUNTER 2024-11-14 13:34 | Outpatient (REF) | payer MEDICARE, SELFPAY ==
[2024-11-14 16:09] LABS: Free T4 (Free Thyroxine) 1.01 ng/dL (0.71-1.85)
== END 2024-11-14 13:35 | disposition home or self-care (01) ==
LOC: HO.LAB 13:34
PROVIDERS: PCP Internal Medicine; Visit Provider Student in an Organized Health Care Education/Training Program
DX: E04.2 Nontoxic multinodular goiter (principal)
CPT/HCPCS: 36415; 84439; 84443; 99212

== ENCOUNTER 2024-12-20 14:13 | Outpatient (REF) | payer MEDICARE, SELFPAY ==
--- NOTE | ~2024-12-20 | US_ITS ---
EXAMINATION: US THYROID CLINICAL INFORMATION: Nontoxic multinodular goiter. COMPARISON: March 03, 2022. TECHNIQUE: Linear transducer grayscale and color Doppler examination with attention to the region of the thyroid. FINDINGS: SIZE: Measurements of the thyroid lobes and nodules are given in sagittal, anteroposterior and transverse dimensions respectively. Right Thyroid Lobe: 5.1 x 1.4 x 1.1 cm, volume 4.2 mL. Previously: 4.9 x 1.6 x 1.1 cm and volume: 4.7 cc. Parenchyma: The gland echotexture is heterogeneous. Thyroid vascularity is increased. Left Thyroid Lobe: 6.2 x 3.0 x 3.4 cm, volume 33 mL. Previously: 5.1 x 2.6 x 2.9 cm and volume: 20.6 cc. Parenchyma: The gland echotexture is heterogeneous. Thyroid vascularity is increased. Isthmus: 0.2 cm in maximum AP dimension. Previously: 0.2 cm. Estimated total number of nodules greater than or equal to 1 cm: 3. 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 Location: Left lobe, mid portion/lower pole junction. Size: 5.3 x 2.6 x 4.1 cm, volume 29 mL. Previously: 4.5 x 2.2 x 2.9 cm and volume: 14.8 cc. Nodule characteristics: Composition: Solid/almost completely solid (2). Echogenicity: Isoechoic (1). Shape: Not taller than wide (0). Margins: Smooth (0). Echogenic Foci: Punctate echogenic foci (3). ACR TI-RADS total points: 6 ACR TI-RADS category: 4 2. Location: Left lobe upper segment.. Size: 1.6 x 1.2 x 1.5 cm, volume 1.6 mL. Previously: 1.0 x 0.9 x 0.9 cm in volume: 0.41 cc. Nodule characteristics: Composition: Mixed cystic and solid (1). Echogenicity: Isoechoic (1). Shape: Not taller than wide (0). Margins: Ill-defined (0). Echogenic Foci: None (0). ACR TI-RADS total points: 2 ACR TI-RADS category: 2 3. Location: Lower pole, right lobe. Size: 1.2 x 0.6 x 0.9 cm, volume 0.34 mL. Previously: 1.3 x 0.9 x 0.9 cm and volume: 0.55 cc. Nodule characteristics: Composition: Solid (2). Echogenicity: Isoechoic (1). Shape: Not taller than wide (0). Margins: Smooth (0). Echogenic Foci: Punctate echogenic foci (3). ACR TI-RADS total points: 6 ACR TI-RADS category: 4 4. Location: Midportion, right lobe. Size: 0.7 x 0.4 x 0.6 cm, volume 0.09 mL. Previously: 1.0 x 0.5 x 0.8 cm and volume: 0.22 cc. Nodule characteristics: Composition: Solid (2). Echogenicity: Hypoechoic (2). Shape: Not taller than wide (0). Margins: Ill-defined (0). Echogenic Foci: Peripheral calcifications (2). ACR TI-RADS total points: 6 ACR TI-RADS category: 4 4. Location: Midportion, right lobe. Size: 0.6 x 0.4 x 0.4 cm, volume 0.0 52 mL. Nodule characteristics: Composition: Solid/almost completely solid (2). Echogenicity: Very hypoechoic (3). Shape: Not taller than wide (0). Margins: Smooth (0). Echogenic Foci: None (0). ACR TI-RADS total points: 5 ACR TI-RADS category: 4 US/US thyroid IMPRESSION: ACR TI RADS 4 ACR TI-RADS RECOMMENDATION REFERENCE: Ultrasound-guided fine-needle aspiration, followup ultrasound, no further follow up. * TR1 (0 point) and TR2 (2 points): No FNA or follow up. * TR3 (3 points): FNA if more than or equal to 2.5 cm in maximum dimension, followup ultrasound in 1, 3 and 5 years if 1.5 to 2.4 cm in maximum dimension. * TR4 (4-6 points): FNA if more than or equal to 1.5 cm in maximum dimension, followup ultrasound in 1, 2, 3 and 5 years if 1 to 1.4 cm in maximum dimension. * TR5 (more than or equal to 7 points): FNA if more than or equal to 1 cm in maximum dimension, followup ultrasound every year for 5 years if 0.5 to 0.9 cm in maximum dimension. * TR3, TR4 or TR5 nodules that are below the size threshold for followup receive no follow up. Electronically signed by: Rufino Radford MD 12/21/2024 07:23 AM EDT
--- OUTSIDE RECORDS SUMMARY | 2024-12-20 15:29 | XMS_ITS | Clinical Summary ---
Author Organization [facility] [address] [place] [address] [address] [place] [address] Phone Care Team Providers Care Agriculture Department Chair Name Role Phone Lisa Lala MD Primary Care Provider [phone] Allergies Active Allergy Reactions Criticality Noted Date Comments Latex 07/22/2013 Other Reaction(s): Rash/Dermatitis Medications melatonin 1 mg tablet Take 3 tablets (3 mg total) by mouth if needed. Active calcium carbonate (TUMS ORAL) Take by mouth 1 (one) time each day. Active CHOLECALCIFEROL , VITAMIN D3, ORAL Take by mouth. Active multivit-min/ir on/FA/vit K/lut (CENTRUM SILVER WOMEN ORAL) Take by [...] BY MOUTH EVERY DAY 90 tablet 2 09/08/2024 Active atorvastatin (Lipitor) 10 mg tablet Take 1 tablet (10 mg total) by mouth at bedtime. 90 each 3 10/20/2024 6 Active Active Problems Problem Noted Date Diagnosed Date [...] ischemic workup. Hepatic cyst 10/01/2021 Overview (05/30/2024): [facility] gastro Elevated testosterone level 07/19/2021 Overview (05/30/2024): [...] Multiple thyroid nodules 08/21/2011 Low gammaglobulin level ([facility] V24) 05/17/2010 Raynaud disease 05/17/2010 Overview (05/30/2024): [...] Type Department Care Team Description 10/25/2024 Telephone [facility] [address] [place] [address] Kelley Diallo MD Wait List 10/06/2024 Telephone [facility] - [facility] [address] [facility] [address] [place] [id number] Radha Hardin MA Lab Results 09/21/2024 2:50 PM EDT - 09/21/2024 11:59 PM EDT Hospital Encounter Radiology Department - [address] [address] Abnormal mammogram Discharge Disposition: Home or Self Care 09/21/2024 2:08 PM EDT - 09/21/2024 11:59 PM EDT Hospital Encounter Radiology Department - [address] [address] Abnormal mammogram Discharge Disposition: Home or Self Care from Last 3 Months Immunizations Name Administration [...] unspecified parts of face Low gammaglobulin level (CMS/HCC V24) 05/17/2010 DX:Low gammaglobulin level (HCC) SVT (supraventricular tachyc ardia) (CMS/HCC V24) 04/13/2013 DX:SVT (supraventricular tac hycardia) (HCC) Other specified personal his tory presenting hazards [...] Record ed Within the last 3 months, ho w many times did you visit the emergency [...] care for your loved ones. For example, infant childcare provider or elderly care for an older adult? 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 Not on file Not on file [...] 78 08/29/2024 1:35 PM EDT Temperature 36.3 C (97.4 F) 08/29/2024 1:35 PM EDT Respiratory Rate 14 08/29/2024 1:35 PM EDT [...] Description 04/19/2025 3:00 PM EST Office Visit [facility] [address] [facility] [address] [place] [address] Kelley Diallo MD [address] [place] [address] 09/18/2025 3:00 PM EDT Office Visit Adult Medicine [facility] [address] [place] [address] Lisa Lala MD [address] [place] [address] Health Maintenance Due Date Last Done Comments Zoster Vaccines (1 of 2) 1964 RSV Immunization Adult Patients (1 - 1-dose 75+ series) 2021 Medicare Annual Wellness Visit 05/10/2022 Osteoporosis Screening (Bone Density Screening) 05/10/2022 COVID-19 Vaccine (8 - Moderna risk season) 2024 02/16/2024, 03/13/2023, 03/10/2022, Additional history exists Influenza Vaccine (#1) 2025 03/03/2008 Falls Risk Assessment 08/29/2025 08/29/2024 Social Influencers of Health Screening 08/29/2025 08/29/2024 Cholesterol Screening (Lipid Panel) 09/08/2029 09/08/2024, 06/12/2023 DTaP,Tdap,and Td Vaccines (5 - Td or Tdap) 10/01/2031 09/30/2021, 08/06/2011, 01/30/2006, Additional history exists Hepatitis C Screening Completed 04/13/2013 Colorectal Cancer Screening: Colonoscopy Discontinued 09/06/2013 Pneumococcal Vaccine: 50+ Years Completed 07/26/2014, 03/03/2012 Depression Screening Completed 08/29/2024 HIB Vaccines Aged Out No longer eligi [...] Routine 09/21/2024 2:28 PM EDT Abnormal mammogram LIPID PANEL WITH REFLEX TO DIRECT LDL Routine 09/08/2024 10:23 AM EDT Elevated cholesterol HM HEPATITIS C SCREENING Routine 04/13/2013 from Last 3 Months or Most Recently Relevant to Health Maintenance Results * US Breast Limited Right (09/21/2024 2:59 PM EDT) Anatomical Region Laterality Modality Breast Right Ultrasound 09/21/2024 3:08 PM EDT Narrative 09/21/2024 3:17 PM EDT Bilateral diagnostic mammogram. Targeted ultrasound of the right breast HISTORY: Follow-up on asymmetry in the left medial breast. Comparison with prior examinations including diagnostic studies on 04/08/2024 and 10/01/2023 as well as screening mammograms, latest from 09/04/2023 Full-field digital 2-D C views and Tomosynthesis mammograms were obtained bilaterally. Straight lateral and spot compression views of the right breast in CC and MLO projection were obtained. Breast tissue is heterogeneously dense limiting detection mammography. Right breast. Focal asymmetry visualized in the retroareolar upper breast mid 3rd depth was essentially effaced on the additional spot compression views and not clearly visible on straight lateral view. No suspicious masses, architectural distortion or new microcalcifications. Targeted ultrasound of the right upper breast revealed no evidence of cystic or solid masses or acoustic shadowing. Left breast. Focal asymmetry in the medial left breast appears to be less conspicuous than on previous examinations. No new focal abnormalities were identified. CONCLUSIONS: Heterogeneously dense breasts tissue. No suspicious mammographic abnormalities in the right breast. No suspicious ultrasonographic abnormalities in the right breast. Stable focal asymmetry in the left breast, most likely benign. Diagnostic bilateral mammogram is recommended in one year. Findings were explained to the patient. Patient is concerned about her mammograms and considering to have MRI examination of the breasts. It is not unreasonable, especially in the view of heterogeneously dense breast tissues. Ordering provider may send a request for MRI of the breasts. BIRADS 3, probably benign findings. -------- FINAL REPORT -------- Dictated By: Marifer Lamas Dictated Date: 09/21/2024 15:08 ET Assigned Physician: Marifer Lamas Reviewed and Electronically Signed By: Marifer Lamas Signed Date: 09/21/2024 15:17 ET Workstation ID: [id number] Transcribed By: Self Edit Transcribed Date: 09/21/2024 [...] Signed Date: 09/21/2024 15:17 ET Workstation ID: [id number] Transcribed By: Self Edit Transcribed Date: 09/21/2024 15:08 ET us Lisa Lala MD IMG US PROCEDURES Final Result * MG Mammo Digital Diagnostic w Pop bilat (09/21/2024 2:28 PM EDT) Anatomical Region Laterality Modality Breast Bilateral Mammography 09/21/2024 3:08 PM EDT Narrative 09/21/2024 3:17 PM EDT Bilateral diagnostic mammogram. Targeted ultrasound of the right breast HISTORY: Follow-up on asymmetry in the left medial breast. Comparison with prior examinations including diagnostic studies on 04/08/2024 and 10/01/2023 as well as screening mammograms, latest from 09/04/2023 Full-field digital 2-D C views and Tomosynthesis mammograms were obtained bilaterally. Straight lateral and spot compression views of the right breast in CC and MLO projection were obtained. Breast tissue is heterogeneously dense limiting detection mammography. Right breast. Focal asymmetry visualized in the retroareolar upper breast mid 3rd depth was essentially effaced on the additional spot compression views and not clearly visible on straight lateral view. No suspicious masses, architectural distortion or new microcalcifications. Targeted ultrasound of the right upper breast revealed no evidence of cystic or solid masses or acoustic shadowing. Left breast. Focal asymmetry in the medial left breast appears to be less conspicuous than on previous examinations. No new focal abnormalities were identified. CONCLUSIONS: Heterogeneously dense breasts tissue. No suspicious mammographic abnormalities in the right breast. No suspicious ultrasonographic abnormalities in the right breast. Stable focal asymmetry in the left breast, most likely benign. Diagnostic bilateral mammogram is recommended in one year. Findings were explained to the patient. Patient is concerned about her mammograms and considering to have MRI examination of the breasts. It is not unreasonable, especially in the view of heterogeneously dense breast tissues. Ordering provider may send a request for MRI of the breasts. BIRADS 3, probably benign findings. -------- FINAL REPORT -------- Dictated By: Marifer Lamas Dictated Date: 09/21/2024 15:08 ET Assigned Physician: Marifer Lamas Reviewed and Electronically Signed By: Marifer Lamas Signed Date: 09/21/2024 15:17 ET Workstation ID: [id number] Transcribed By: Self Edit Transcribed Date: 09/21/2024 [...] Signed Date: 09/21/2024 15:17 ET Workstation ID: [id number] Transcribed By: Self Edit Transcribed Date: 09/21/2024 15:08 ET us Lisa Lala MD IMG BI PROCEDURES Final Result * (ABNORMAL) Lipid panel with reflex to direct LDL (09/08/2024 10:23 AM EDT) Cholesterol 274(H) 0 - 200 mg/dL LAB CHEMISTRY METHOD 09/08/2024 1:[address] [facility] Triglycerides 143 0 - 150 mg/dL LAB CHEMISTRY METHOD 09/08/2024 1:[address] [facility] HDL 61 >=40 mg/dL LAB CHEMISTRY METHOD 09/08/2024 1:[address] [facility] LDL Calculated 184(H) 0 - 100 mg/dL LAB CHEMISTRY METHOD 09/08/2024 1:[address] [facility] VLDL Cholesterol Se 28.6 mg/dL LAB CHEMISTRY METHOD 09/08/2024 1:[address] [facility] Non HDL Chol. (LDL+VLDL) 213(H) <145 mg/dL LAB CHEMISTRY METHOD 09/08/2024 1:[address] [facility] Chol/HDL Ratio 4.5(H) 0.0 - 4.4 LAB CHEMISTRY METHOD 09/08/2024 1:[address] [facility] Blood Venous blood specimen / Unknown Venipuncture / Unknown 09/08/2024 10:23 AM EDT 09/08/2024 10:23 AM EDT us Kelley Diallo MD LAB BLOOD ORDERABLES Final Resu lt [facility] [address] [place] [address], [place] [phone] * Hepatitis C Screening (04/13/2013) Pathologist [facility] Hepatitis C Screening Abstracted us Historical Provider HEALTH MAINTENANCE Final Result from Last 3 Months or Most Recently Relevant to Health Maintenance Insurance [employer] Care Teams Agriculture Department Chair Relationship Specialty Start Date End Date Lisa Lala MD [address] [place] [address] PCP - General 10/25/15
== END 2024-12-20 14:14 | disposition home or self-care (01) ==
LOC: HO.US 14:13
PROVIDERS: PCP Internal Medicine; Visit Provider Student in an Organized Health Care Education/Training Program
DX: E04.2 Nontoxic multinodular goiter (principal)
CPT/HCPCS: 76536

== ENCOUNTER → 2024-12-20 14:15 | Outpatient (BNV) | payer MEDICARE, SELFPAY | PROVIDERS: PCP Internal Medicine; Visit Provider Radiology Diagnostic Radiology | DX: E04.2 Nontoxic multinodular goiter (principal) | CPT/HCPCS: 76536 ==

== ENCOUNTER 2025-01-09 13:38 | Outpatient (AMB) | payer MEDICARE, SELFPAY ==
[2025-01-09 13:40] VITALS: BP 116/60; PULSE 86; O2SAT 97; BMI 18.5
--- NOTE | 2025-01-09 13:40 | A.OFFVIS_ITS ---
Vital Signs 01/09/25 13:40 Height 5 ft 4 in Weight 108 lb 0.424 oz BMI 18.5 BP 116/60 Blood Pressure Location Lt brachial Position Sitting Pulse 86 Pulse Source Pulse Oximeter Pulse Oximetry (%) 97 Oxygen Delivery Method Room Air Intake Visit Reasons: Multiple Thyroid Nodules Intake Note: Patient present today for Multiple Thyroid Nodules office visit. Differential Specialist Required: No Accompanied by: Self / Same As Patient Allergies perfume Allergy (Mild, Verified 11/14/24 13:45) RASH Latex Gloves Allergy (Unknown, Uncoded 11/14/24 13:45) Unknown SOIL Allergy (Unknown, Uncoded 11/14/24 13:45) RASH Medication List - Last Reconciled 01/09/25 by Jacquelyn Lundy MD ascorbic acid (vitamin C) mg PO atorvastatin (Lipitor) 10 mg PO BEDTIME biotin 5,000 mcg sublingual DAILY cholecalciferol (vitamin D3) (Vitamin D3) 25 mcg PO DAILY digoxin 125 mcg PO DAILY melatonin (Melatin) 3 mg PO BEDTIME PRN qdddweiz-amp-htxu-folic-vit K1 8 mg-400 mcg- 10 mcg (Centrum Chewables) 1 tab PO DAILY tretinoin 0.025% appl topical BEDTIME HPI Comments Details: 79 YO F with PMHx NTMNG who is seen in F/U for her NTMNG and also hyperandrogenism. She was previously followed by Dr. Mustafa.. Then Dr. Reynoso and last saw Dr. Campbell in July 2023. 1) NTMNG: She has a long history of a multinodular thyroid. She was previously followed by [place], and was initially diagnosed in 2011. She had FNA of her RMP, LMP and LLP nodules in 2011, all benign. She then underwent repeat FNA biopsy 06/30/2019 of a 4.2 cm L sided thyroid nodule and a 1.1 cm RLP nodule. Both with benign cytology. She then was lost to F/U during the COVID-19 pandemic, but subsequently reestablished care. She had a repeat US which revealed interval growth of her RLP nodule to 1.5 cm. Her LMP nodule was stable at 4.5 cm. She did meet indication for FNA biopsy of her RLP 1.5 cm nodule, and requested FNA biopsy of her LMP 4.5 cm thyroid nodule for peace of mind. . She underwent FNA biopsy 03/28/2021 of her RLP 1.5 cm thyroid nodule and her LMP 4.5 cm thyroid nodule both with benign (bethesda category II) cytology. She denies any significant compressive symptoms. She does report hair loss, but otherwise feels well. Her ROS is otherwise negative at this time. Most recent thyroid ultrasound from March 2022 which showed a left superior 1 cm TR 4 category nodule which was solid isoechoic with punctate echogenic foci, which meets criteria for follow up. The left midpole 4.5 cm nodule remained stable which has been biopsied twice at least before and was benign. No need for further investigation of this. The right midpole 1 cm nodule which is solid hypoechoic with peripheral calcifications TR 5 category, has increased significantly in size from 0.8 X 0.3 X 0.7 cm to 1 X 0.5 X 0.8 cm. This technically meets criteria for FNA, however this was on ultrasound in 2021 at this time I would like to get some fresh images 1st. The right inferior 1.3 cm solid hypoechoic nodule with punctate echogenic foci remained stable in size, this has also been biopsied twice before and was benign. Interval history 11/14/2024: Normal TSH and free T4 12/20/2024: Ultrasound of the thyroid I reviewed the images myself which showed mostly stable size of the nodules. 2) Hyperandrogenism: Elevated baseline cortisol She was complaining of hair loss so we checked a full androgen panel which revealed elevated free and total testosterone in 2020 . Her US Ovaries revealed uterine fibroids, but no ovarian massess.. Her CT of the adrenals 2020 revealed no adrenal mass Her Cortisol and ACTH were elevated in 2020. She was asked to complete a dexamethasone suppression test but has refused. Normal salivary cortisol levels in 2021. At this time she does not have hypertension, no history of diabetes, she does not have any bothersome hyper androgenic symptoms, the testosterone was mildly elevated, no history of fragility fracture/known osteoporosis. At this time no need to further pursue. Physical exam General: sitting comfortably in no acute distress HEENT: normocephalic/atraumatic, Neck: supple, palpable 3 cm left-sided nodule Cardiac: normal heart sounds Pulm: normal breath sounds B/L, no added breath sounds Abd: not distended, no tenderness Extremities: no edema, no signs of myxedema Labs: Laboratory Tests 03/12/21 03/12/21 03/12/21 07:45 07:45 07:45 Creatinine 0.84 Estimated GFR > 60 Phosphorus 3.7 Total Bilirubin 0.4 AST 15 ALT 12 Alkaline Phosphatase 71 Total Protein 6.6 Albumin 4.6 25-OH Vitamin D Total 51.6 TSH 2.95 Free T4 0.95 Total Testosterone 76 H Fr Testosterone Dialys 5.4 H Androstenedione 102 DHEA Sulfate 68 PTH Intact 35 Calcium (PTH Intact) 9.4 ACTH 56 H 17-Hydroxyprogesterone 113 Laboratory Tests 03/12/21 04/30/21 01/18/22 07:45 14:10 00:00 Total Testosterone 76 H 68 H Fr Testosterone Dialys 5.4 H 5.1 H Saliva Cortisol <0.03 Laboratory Tests 11/14/24 14:44 TSH 2.40 Free T4 1.01 US THYROID 12/20/24 CLINICAL INFORMATION: Nontoxic multinodular goiter. COMPARISON: March 03, 2022. TECHNIQUE: Linear transducer grayscale and color Doppler examination with attention to the region of the thyroid. FINDINGS: SIZE: Measurements of the thyroid lobes and nodules are given in sagittal, anteroposterior and transverse dimensions respectively. Right Thyroid Lobe: 5.1 x 1.4 x 1.1 cm, volume 4.2 mL. Previously: 4.9 x 1.6 x 1.1 cm and volume: 4.7 cc. Parenchyma: The gland echotexture is heterogeneous. Thyroid vascularity is increased. Left Thyroid Lobe: 6.2 x 3.0 x 3.4 cm, volume 33 mL. Previously: 5.1 x 2.6 x 2.9 cm and volume: 20.6 cc. Parenchyma: The gland echotexture is heterogeneous. Thyroid vascularity is increased. Isthmus: 0.2 cm in maximum AP dimension. Previously: 0.2 cm. Estimated total number of nodules greater than or equal to 1 cm: 3. [address] [employer] nodules are described as follows: 1. Location: Left lobe, mid portion/lower pole junction. Size: 5.3 x 2.6 x 4.1 cm, volume 29 mL. Previously: 4.5 x 2.2 x 2.9 cm and volume: 14.8 cc. Nodule characteristics: Composition: Solid/almost completely solid (2). Echogenicity: Isoechoic (1). Shape: Not taller than wide (0). Margins: Smooth (0). Echogenic Foci: Punctate echogenic foci (3). ACR TI-RADS total points: 6 ACR TI-RADS category: 4 2. Location: Left lobe upper segment.. Size: 1.6 x 1.2 x 1.5 cm, volume 1.6 mL. Previously: 1.0 x 0.9 x 0.9 cm in volume: 0.41 cc. Nodule characteristics: Composition: Mixed cystic and solid (1). Echogenicity: Isoechoic (1). Shape: Not taller than wide (0). Margins: Ill-defined (0). Echogenic Foci: None (0). ACR TI-RADS total points: 2 ACR TI-RADS category: 2 3. Location: Lower pole, right lobe. Size: 1.2 x 0.6 x 0.9 cm, volume 0.34 mL. Previously: 1.3 x 0.9 x 0.9 cm and volume: 0.55 cc. Nodule characteristics: Composition: Solid (2). Echogenicity: Isoechoic (1). Shape: Not taller than wide (0). Margins: Smooth (0). Echogenic Foci: Punctate echogenic foci (3). ACR TI-RADS total points: 6 ACR TI-RADS category: 4 4. Location: Midportion, right lobe. Size: 0.7 x 0.4 x 0.6 cm, volume 0.09 mL. Previously: 1.0 x 0.5 x 0.8 cm and volume: 0.22 cc. Nodule characteristics: Composition: Solid (2). Echogenicity: Hypoechoic (2). Shape: Not taller than wide (0). Margins: Ill-defined (0). Echogenic Foci: Peripheral calcifications (2). ACR TI-RADS total points: 6 ACR TI-RADS category: 4 4. Location: Midportion, right lobe. Size: 0.6 x 0.4 x 0.4 cm, volume 0.0 52 mL. Nodule characteristics: Composition: Solid/almost completely solid (2). Echogenicity: Very hypoechoic (3). Shape: Not taller than wide (0). Margins: Smooth (0). Echogenic Foci: None (0). ACR TI-RADS total points: 5 ACR TI-RADS category: 4 US/US thyroid IMPRESSION: ACR TI RADS 4 US THYROID 03/03/22 CLINICAL INFORMATION: Nontoxic multinodular goiter. COMPARISON: Ultrasound thyroid 01/03/2021 and 05/05/2019. US-guided thyroid biopsy 03/28/2021. TECHNIQUE: Linear transducer grayscale and color Doppler examination with attention to the region of the thyroid. FINDINGS: SIZE: Measurements of the thyroid lobes and nodules are given in sagittal, anteroposterior and transverse dimensions respectively. Right Thyroid Lobe: 4.9 x 1.6 x 1.4 cm, volume 4.7 mL. Previously 5.0 x 1.2 x 1.4 cm, volume 4.4 mL. Parenchyma: The gland echotexture is heterogeneous. Thyroid vascularity is increased. Left Thyroid Lobe: 5.1 x 2.6 x 2.9 cm, volume 20.6 mL. Previously 5.3 x 2.3 x 3.1 cm, volume 19.8 mL. Parenchyma: The gland echotexture is heterogeneous. Thyroid vascularity is increased. Isthmus: 0.1 cm in maximum AP dimension. Previously 0.2 cm. Estimated total number of nodules greater than or equal to 1 cm: 4. [address] [employer] nodules are described as follows: 1. Location: Left superior. Size: 1.0 x 0.9 x 0.9 cm, volume 0.41 mL. Previously: New since the previous study. Nodule characteristics: Composition: Solid/almost completely solid (2). Echogenicity: Isoechoic (1). Shape: Not taller than wide (0). Margins: Smooth (0). Echogenic Foci: Punctate echogenic foci (3). ACR TI-RADS total points: 6 ACR TI-RADS category: 4 2. Location: Left mid. Size: 4.5 x 2.2 x 2.9 cm, volume 14.8 mL. Previously: 4.3 x 2.4 x 2.8 cm, volume 15.0 mL. Nodule characteristics: Composition: Solid/almost completely solid (2). Echogenicity: Isoechoic (1). Shape: Not taller than wide (0). Margins: Smooth (0). Echogenic Foci: Punctate echogenic foci (3). ACR TI-RADS total points: 6 Previous: 6 ACR TI-RADS category: 4 Previous: 4 Significant change in size (>/= 20% in 2 dimensions and minimal increase of 2 mm or 50% or greater increase in volume): Change in features: Change in ACR TI-RADS risk category: 3. Location: Right mid. Size: 1.0 x 0.5 x 0.8 cm, volume 0.22 mL. Previously: 0.8 x 0.3 x 0.7 cm, volume 0.03 mL. Nodule characteristics: Composition: Solid (2). Echogenicity: Hypoechoic (2). Shape: Not taller than wide (0). Margins: Irregular (2). Echogenic Foci: Peripheral calcifications (2). ACR TI-RADS total points: 8 Previous: 5 ACR TI-RADS category: 5 Previous: 4 Significant change in size (>/= 20% in 2 dimensions and minimal increase of 2 mm or 50% or greater increase in volume): Change in features: Change in ACR TI-RADS risk category: 4. Location: Right inferior. Size: 1.3 x 0.9 x 0.9 cm, volume 0.55 mL. Previously: 1.5 x 0.7 x 0.8 cm, volume 0.44 mL. Nodule characteristics: Composition: Solid (2). Echogenicity: Hypoechoic (2). Shape: Not taller than wide (0). Margins: Smooth (0). Echogenic Foci: Punctate echogenic foci (3). ACR TI-RADS total points: 7 Previous: 7 ACR TI-RADS category: 5 Previous: 5 Significant change in size (>/= 20% in 2 dimensions and minimal increase of 2 mm or 50% or greater increase in volume): Change in features: Change in ACR TI-RADS risk category: NODES: No lymphadenopathy is seen in the tissue surrounding the thyroid gland. US/US thyroid IMPRESSION: Heterogeneous hypervascular thyroid gland with bilateral nodules. The left lobe is slightly enlarged. There is a newly appreciated nodule in the upper pole of the left lobe. This has punctate calcifications and according to TI RADS criteria, fine-needle aspiration should be considered. Nodules otherwise do not appear appreciably changed. CT Abdomen: 04/30/2021 FINDINGS: LUNG BASES: The lung bases are clear.? LIVER, GALLBLADDER, AND BILIARY TREE: There are innumerable low-attenuation liver lesions suggestive of a small cyst. The liver is otherwise unremarkable. The gallbladder is unremarkable. There is no biliary duct dilatation.? PANCREAS: Unremarkable.? SPLEEN: Unremarkable. ADRENAL GLANDS AND KIDNEYS: The adrenal glands are normal. No focal lesion is seen. There is a small 1 cm cyst in the lower pole of the left kidney. No imaging follow-up is indicated. The kidneys are otherwise unremarkable. BOWEL LOOPS: Unremarkable. The visualized distal thoracic esophagus appears slightly dilated and filled with air. LYMPH NODES: Normal. VASCULAR: There are prominent bilateral ovarian veins. There is evidence of atherosclerotic disease. No aneurysm is seen. Vascular structures are otherwise unremarkable. BONES: There are degenerative changes of the spine and scoliosis. There are small sclerotic lesions seen in the L2 vertebral body and visualized right iliac bone. Ovarian US: 05/09/2021 FINDINGS: Uterus: The uterus is anteverted and measures 6.6 x 3.6 x 4.9 cm. The double wall endometrial thickness is 0.4 to 0.5 mm.? The uterus is smooth in contour and has normal myometrial echogenicity. ? No visible fibroid. FIBROIDS: There are 4 fibroids seen. ?1. Location: Anterior lower uterine segment, myometrial. ?? ? Size: 1.6 x 1.0 x 1.3 cm. ?? ? Fibroid characteristics: Heterogeneously hypoechoic. ?2. Location: Posterior mid body, myometrial. ?? ? Size: 1.7 x 1.4 x 1.7 cm. ?? ? Fibroid characteristics: Heterogeneous echotexture. ?3. Location: Anterior mid body, myometrial. ?? ? Size: 1.5 x 0.6 x 1.1 cm. ?? ? Fibroid characteristics: Heterogeneous hypoechoic. ?4. Location: Rightward fundus. ?? ? Size: 2.4 x 2.7 x 2.3 cm. ?? ? Fibroid characteristics: Coarsely calcified, with shadowing. Adnexa: Both ovaries are visualized. There is normal color flow to the adnexa. There is no ovarian torsion.? There is a small amount nonspecific free fluid in the cul-de-sac. Right ovary measures 2.2 x 1.4 x 0.9 cm (volume 1.5 mL). Left ovary measures 2.0 x 1.4 x 1.4 cm (volume 1.6 mL). Thyroid US 01/03/2021: Right Thyroid Lobe: 4.9 x 1.6 x 1.1 cm, volume 4.7 mL. Previously 4.9 x 1.5 x 1.7 cm, volume 6.6 mL. Parenchyma: The gland echotexture is heterogeneous. Thyroid vascularity is increased. Left Thyroid Lobe: 5.1 x 2.6 x 2.9 cm, volume 20.6 mL. Previously 5.7 x 2.5 x 2.9 cm, volume 21.8 mL. Parenchyma: The gland echotexture is heterogeneous. Thyroid vascularity is increased. Isthmus: 0.20 cm in maximum AP dimension. Previously 0.20 cm. Estimated total number of nodules greater than or equal to 1 cm: 2. [address] [employer] nodules are described as follows: 1.? Location: Right superior. ?? ? Size: 0.80 x 0.30 x 0.60 cm, volume 0.08 mL. ?? ? Previously: 0.50 x 0.30 x 0.40 cm, volume 0.03 mL. ?? ? Nodule characteristics: ?? ? Composition: Mixed cystic and solid (1). ?? ? Echogenicity: Hyperechoic (1). ?? ? Shape: Not taller than wide (0). ?? ? Margins: Smooth (0). ?? ? Echogenic Foci: None (0).? ACR TI-RADS total points: 2 Previous: n/a ?? ? ACR TI-RADS category: 2 Previous: n/a ? Significant change in size (>/= 20% in 2 dimensions and minimal increase of 2 mm or 50% or greater increase in volume): Minimal. ?? ? Change in features: None. ?? ? Change in ACR TI-RADS risk category: n/a 2.? Location: Right superior. ?? ? Size: 0.80 x 0.30 x 0.70 cm, volume 0.09 mL. ?? ? Previously: 0.70 x 0.40 x 0.80 cm, volume 0.12 mL. ?? ? Nodule characteristics: ?? ? Composition: Solid (2). ?? ? Echogenicity: Isoechoic (1). ?? ? Shape: Not taller than wide (0). ?? ? Margins: Smooth (0). ?? ? Echogenic Foci: Peripheral calcifications (2).? ACR TI-RADS total points: 5 Previous: n/a ?? ? ACR TI-RADS category: 4 Previous: n/a ? Significant change in size (>/= 20% in 2 dimensions and minimal increase of 2 mm or 50% or greater increase in volume): None. ?? ? Change in features: None. ?? ? Change in ACR TI-RADS risk category: n/a 3.? Location: Right inferior. ?? ? Size: 1.5 x 0.70 x 0.80 cm, volume 0.44 mL. ?? ? Previously: 0.54 x 0.45 x 0.50 cm, volume 0.06 mL. ?? ? Nodule characteristics: ?? ? Composition: Solid (2). ?? ? Echogenicity: Hypoechoic (2). ?? ? Shape: Not taller than wide (0). ?? ? Margins: Smooth (0). ?? ? Echogenic Foci: Punctate echogenic foci (3). ? ACR TI-RADS total points: 7 Previous: n/a ?? ? ACR TI-RADS category: 5 Previous: n/a ? Significant change in size (>/= 20% in 2 dimensions and minimal increase of 2 mm or 50% or greater increase in volume): Significant increase. ?? ? Change in features: Slightly heterogeneous. ?? ? Change in ACR TI-RADS risk category: n/a 4.? Location: Left mid. ?? ? Size: 4.3 x 2.4 x 2.8 cm, volume 15.0 mL. ?? ? Previously: 4.2 x 2.2 x 3.0 cm, volume 14.5 mL. ?? ? Nodule characteristics: ?? ? Composition: Solid/almost completely solid (2). ?? ? Echogenicity: Isoechoic (1). ?? ? Shape: Not taller than wide (0). ?? ? Margins: Smooth (0). ?? ? Echogenic Foci: Punctate echogenic foci (3). ? ACR TI-RADS total points: 6 Previous: n/a ?? ? ACR TI-RADS category: 4 Previous: n/a ? Significant change in size (>/= 20% in 2 dimensions and minimal increase of 2 mm or 50% or greater increase in volume): None ?? ? Change in features: None ?? ? Change in ACR TI-RADS risk category: n/a NODES: No lymphadenopathy is seen in the tissue surrounding the thyroid gland. [facility] Medical History Interstitial cystitis UTI (urinary tract infection) Uterine fibroid Renal cyst Liver mass Hyperandrogenism Hair loss Vitamin D deficiency Multinodular thyroid Surgical History Hx of appendectomy Hx of lumpectomy Family History Father Myelodysplasia (myelodysplastic syndrome) Mother Goiter Abdominal aortic aneurysm Maternal Grandmother Goiter Paternal Grandmother Diabetes Social History Household Members: Spouse Alcohol intake: current Alcohol intake frequency: holidays/special occasions only Alcohol type: wine Patient Tobacco Use Status: Never used Tobacco Physical Exam Vital Signs: Last Vital Signs Pulse 86 01/09/25 13:40 BP 116/60 01/09/25 13:40 Pulse Ox 97 01/09/25 13:40 Oxygen Delivery Method Room Air 01/09/25 13:40 BMI result Body Mass Index 18.5 Assessment & Plan Assessment & Plan (1) Multinodular thyroid: Code(s): E04.2 - Nontoxic multinodular goiter Category: Medical Plan: 79-year-old female with no family history of thyroid cancer with no personal history of head or neck radiation who is coming in today for follow up of nontoxic multinodular goiter. She was initially followed at [facility], diagnosed with thyroid nodules in 2011, FNA biopsy of the right midpole, left midpole and left lower pole nodules in 2011 were reportedly benign. 06/30/2019: FNA biopsy of the 4.2 cm left-sided nodule and the right lower pole 1.1 cm nodule were benign. Then she had interval growth of the right lower pole nodule to 1.5 cm on repeat ultrasound in 2020, however was insistent on repeating biopsy of the left midpole nodule as well. 03/28/2021: Repeat FNA biopsy of the right lower pole 1.5 cm and the left midpole 4.5 cm thyroid nodules was again benign [place] category 2. Showed a left dominant 5.3 cm nodule which even though it is reported as larger in size, this is her dominant nodule that has been biopsied at least twice before and was benign, I discussed with the patient that based on those measurements it does meet criteria for repeat biopsy but given it has been benign before and is low risk appearing, we can just consider monitoring it for now or surgical management if she has any compressive symptoms. At this time patient is okay with surveillance. A left superior 1.6 cm nodule has also increased in size but is low risk appearing, we will keep an eye on this. Right lower pole 1.2 cm nodule remained stable in size. Right midpole subcentimeter nodule is smaller in size which was previously 1 cm and TR 4 category. For now we will continue to watch this. Another right mid lobe subcentimeter 0.6 cm nodule. Normal TFTs from October 2024. She does not have any compressive symptoms. Plan: -ordered ultrasound of the thyroid to be done in 1 year in November 2025 prior to follow up in December 2025 -repeat TSH with reflex free T4 in 1 year Plan See above Orders: Orders US thyroid 12/11/25 E04.2 - Nontoxic multinodular goiter Thyroid Stimulating Hormone 12/11/25 E04.2 - Nontoxic multinodular goiter Free T4 (Free Thyroxine) 12/11/25 E04.2 - Nontoxic multinodular goiter Patient Instructions: Do ultrasound of the thyroid in November 2025, someone we will call you to schedule this, please make sure this is done a few weeks prior to your next follow up in 1 year in December 2025. Do blood work a few days prior to your next follow up in 1 year, orders have been placed. Coding Level of Care Code Est Pt Level 3 (43348) Diagnoses Multinodular thyroid E04.2
== END 2025-01-09 14:14 | disposition home or self-care (01) ==
LOC: HO.ENCR 13:38
PROVIDERS: PCP Internal Medicine; Visit Provider Student in an Organized Health Care Education/Training Program
DX: E04.2 Nontoxic multinodular goiter (principal)
CPT/HCPCS: 99213

== ENCOUNTER → 2025-01-09 13:38 | Outpatient (BNVA) | payer MEDICARE, SELFPAY | PROVIDERS: PCP Internal Medicine; Visit Provider Student in an Organized Health Care Education/Training Program | DX: E04.2 Nontoxic multinodular goiter (principal) | CPT/HCPCS: 99212 ==